=== PATIENT | male | born 1935 | race Caucasian/White ===

== ENCOUNTER 2023-09-04 20:30 | Inpatient (IN) | payer MEDICARE, SELFPAY ==
[2023-09-04 20:35] VITALS: BP 146/75; PULSE 72; RESP 18; TEMP 37; O2SAT 96
[2023-09-04 21:06] VITALS: BMI 38.5
[2023-09-04] MEDS: Polyethylene Glycol 3350 17 GM PACKET PO (23:16)
[2023-09-04] MEDS: Acetaminophen 325 MG Tablet 650 MG PO (23:16)
--- NOTE | 2023-09-05 03:29 | NURSING ---
Bladder scan completed per POLICY CANCELLATION CLERK as pt has not voided since admit. Result 389 ml. This nurse performed st cath per order using sterile technique. Immediate return of 500 ml clear, straw to mando colored urine w/ a strong odor. Pt shows no sxs of pain or discomfort andf tolerated st cath well. Alert to self only. Will continue to monitor.
[2023-09-05 05:21] LABS: Absolute Lymphocyte Count 1.58 X10^3/uL (0.83-4.51); Absolute Neutrophil Count 6.3 X10^3/uL (2.0-7.7); Basophil# 0.04 X10^3/uL; Basophil% 0.4 % (0-1); Eosinophils% 2.2 % (0-5); Hematocrit 35.4 % (40-54); Hemoglobin 11.4 g/dL (13.0-16.5); Lymphocyte # 1.58 X10^3/ul (0.83-4.51); Lymphocyte % 17.6 % (19-41); Mean Corp Hgb Conc 32.2 g/dL (32-36); Mean Corpuscular Volume 102.6 fL (80-94); Mean Platelet Vol. 9.9 fl (6.2-12.0); Monocyte# 0.79 X10^3/uL; Monocyte% 8.8 % (0-10); NRBC Flagged by Analyzer 0 % (0-5); Neutrophil # 6.26 X10^3/uL (2.7-7.7); Neutrophil % 69.9 % (47-70); Platelet Count 215 K/mm3 (150-450); RBC Distribution Width CV 12.5 % (11.6-14.6); RBC Distribution Width SD 46.9 fl (35.1-43.9); Red Blood Count 3.45 M/mm3 (4.6-6.2)
[2023-09-05 06:28] LABS: ALB/GLOB Ratio 0.7 RATIO (0.9-2.4); AST(SGOT) 19 U/L (15-37); Alanine Aminotransfer ALT/SGPT 21 U/L (16-61); Albumin, Serum 2.6 g/dL (3.2-5.0); Alkaline Phosphatase 56 U/L (45-117); Anion Gap 2 (5-15); BUN 16 mg/dL (7-18); BUN/Creat Ratio 22.7 RATIO (10-20); Calcium,Total 9.3 mg/dL (8.5-10.1); Chloride 103 mmol/L (98-107); EST Glomerular Filtration Rate 112 mL/min (>60); Est Glom Filt Rate - Afr Amer 136 mL/min (>60); Estimated Creatinine Clearance 82.54 ml/min; Globulin 3.8 g/dL (2.2-4.2); Glucose 99 mg/dL (74-106); Magnesium 2.1 mg/dL (1.6-2.6); Phosphorus 2.9 mg/dL (2.5-4.9); Potassium 3.9 mmol/L (3.5-5.1); Protein, Total 6.4 g/dL (6.4-8.2); Sodium Level 137 mmol/L (136-145); Thyroid Stim Hormone (TSH) 1.46 uIU/mL (0.358-3.74)
[2023-09-05] MEDS: oxyCODONE 5 MG Tablet PO ×2 (07:15→19:47)
[2023-09-05] MEDS: Enoxaparin 40 MG/0.4 ML Syringe SC (07:15)
[2023-09-05] MEDS: Acetaminophen 325 MG Tablet 650 MG PO ×3 (07:16→18:05)
[2023-09-05] MEDS: Levothyroxine 150 MCG Tablet PO (07:16)
--- NOTE | 2023-09-05 07:49 | NURSING ---
Pt has been very belligerent toward all staff that have been attempting to assist w/ care. Alert to self but does not answer each orientation question asked- will try to change the subject. 1:1 has been unsuccessful w/ each attempt. Was recently repositioned in bed per web services manager x2 assist. Will continue to monitor.
[2023-09-05] MEDS: amLODIPine 5 MG Tablet PO (08:14)
[2023-09-05] MEDS: Tamsulosin HCl 0.4 MG Capsule PO (08:14)
[2023-09-05] MEDS: Pantoprazole Sodium 20 MG Tablet PO (08:14)
[2023-09-05] MEDS: Losartan Potassium 100 MG Tablet PO (08:14)
[2023-09-05] MEDS: hydroCHLOROthiazide 25 MG Tablet PO (08:14)
[2023-09-05] MEDS: Nystatin Powder 15gm Bottle 1 APPLIC TOPICAL ×2 (08:15→19:49)
[2023-09-05] MEDS: Polyethylene Glycol 3350 17 GM PACKET PO ×2 (08:15→19:49)
[2023-09-05] MEDS: Senna Tablet 1 TABLET PO ×2 (08:15→19:49)
[2023-09-05 08:54] VITALS: BP 165/88; PULSE 64; RESP 18; TEMP 37.4; O2SAT 94
--- NOTE | 2023-09-05 11:03 | HP.PCM_ITS ---
[facility] - [facility] General Date of Admission: 09/04/23 Date of Service: 09/05/23 Chief Complaint: Debility due to Fall/SDH/vertebral FX HPI Narrative EUNICE WALTERS, is a 87 YO M with a PMH of normal pressure hydrocephalus status post sophysa valve, dementia, hypertension, hypothyroidism, class III severe obesity, diabetes mellitus type 2, history of malignant melanoma, vitamin D deficiency, gastroesophageal reflux disease without esophagitis, glaucoma, BPH and mixed hyperlipidemia who presented to [facility] on 08/27/2023 as a level 2 trauma transfer after a fall backwards down the front steps of his house. CT of the brain showed a subdural hemorrhage measuring up to 5 mm without associated mass effect. He had a displaced/widened fracture through the anterior inferior endplate of T11 with a small volume of fluid/hemorrhage extending from the disc space into the ventral extra-axial space effacing the ventral thecal sac. He was seen in consultation by neurosurgery and orthopedic surgery. A repeat CT scan of his brain the day following his fall the brain bleed was stable and there was no indication for operative intervention. Orthopedic spine surgery obtained an MRI of the entire spine and had concerned that the fracture at T11 was unstable. He went to surgery on 08/28/2023 for a T9-L2 posterior spinal fusion with Dr. Rg De La Fuente. Post operatively he was seen by PT/OT/geriatrics and acute rehab was recommended at [place]. He was transferred to the acute inpt rehab unit at [facility] on 09/04/23 for 3 hours of therapy daily to restore function/independence at or near his level prior to the fall. Spinal precautions include no bending over at the waist, No lifting > 15 lbs, no prolonged bedrest > 8 hours in a 24 hour period. Called COG LO score at previous hospital - 03/30. Prior to the fall he was ambulating independently with a wheeled walker. He has a history of frequent falls. He does not drive......He told the PT today he drives a golf cart. Afebrile-temp today is 99.3. Blood pressure has ranged from 146/75 to 165/88 since admission. Pulse is within normal limits. VSS - Maintaining appropriate oxygen saturation on RA -94% on room air today. Nursing had him on 2 LPM NC last night......no documented hx of TIMBO although he has a thick neck and is morbidly obese Oral intake - FOOD REFUSED BREAKFAST TODAY. FLUIDS poor Discussed with nursing - Was restless last night and confused. He is retaining urine. PVR was 389. He was [facility] for 500. Reviewed the THERAPY notes Medication list reviewed. All lab drawn this morning was personally reviewed. The white blood cell count is normal at 9.0. Hemoglobin is 11.4 with an MCV of 102.6. Platelets are within normal limits. Sodium is normal at 137 and the potassium is 3.9. Serum bicarb is high normal at 32. The BUN is 16 with a creatinine of 0.7. Magnesium and phosphorus are normal. LFTs are unremarkable. TSH is normal at 1.46. Very agitated today. Calling the nurses liars and being very belligerent. Not participating in therapy. Yelling out constantly...he has not struck out at anybody yet but, he is very angry. 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, in remission BPH (benign prostatic hyperplasia) Diabetes mellitus, type 2 Obesity (BMI 30-39.9) Former smoker GERD (gastroesophageal reflux disease) Vitamin D deficiency Essential hypertension History of malignant melanoma Acquired hypothyroidism Hyperlipidemia Glaucoma Normal pressure hydrocephalus Dementia Home Medications ?Medication ?Instructions ?Recorded ?Last Taken ?Type acetaminophen 325 mg tablet 325 mg PO Q6H pain 09/04/23 Unknown History (Tylenol) amlodipine 5 mg tablet 5 mg PO DAILY htn 09/04/23 Unknown History ammonium lactate 12 % lotion topical PRN PRN dry skin 09/04/23 Unknown History atorvastatin 10 mg tablet 10 mg PO DAILY cholesterol 09/04/23 Unknown History hydrochlorothiazide 25 mg tablet 25 mg PO DAILY . 09/04/23 Unknown History latanoprost 0.005 % eye drops 1 drp ophthalmic (eye) QHS eye drop 09/04/23 Unknown History levothyroxine 150 mcg tablet 150 mcg PO DAILY . 09/04/23 Unknown History losartan 100 mg tablet 100 mg PO DAILY . 09/04/23 Unknown History melatonin 3 mg capsule 3 mg PO QHS insomnia 09/04/23 Unknown History omeprazole 10 mg capsule,delayed 10 mg PO DAILY . 09/04/23 Unknown History release oxycodone 5 mg tablet 5 mg PO Q8H PRN pain (scale score 09/04/23 Unknown History 7-10) polyethylene glycol 3350 17 17 g PO BID constipatio 09/04/23 Unknown History gram/dose oral powder (Miralax) sennosides 8.6 mg tablet (senna) 8.6 mg PO BID constipation 09/04/23 Unknown History tamsulosin 0.4 mg capsule 0.4 mg PO DAILY retention 09/04/23 Unknown History Allergy/AdvReac Type Severity Reaction Status Date / Time No Known Allergies Allergy Verified 09/04/23 21:52 Family History Father CAD (coronary artery disease) Mother CAD (coronary artery disease) Diabetes Brother CAD (coronary artery disease) Grandfather CVA (cerebral vascular accident) Both his maternal and paternal grandfathers had strokes. Surgical History History of spinal fusion H/O melanoma excision History of umbilical hernia repair Ventriculo-peritoneal shunt status History of colonoscopy History of appendectomy Social History household members: spouse housing: other details: He lives in a one-story house with 2 steps to enter his home. Smoking Status: Current some day smoker tobacco type: cigars ROS Review of Systems ROS Unobtainable: due to encephalopathy, due to mental condition and due to mental status Vital Signs Vital Signs Vital Signs: 09/04/23 20:35 09/04/23 21:30 09/05/23 08:54 Temperature 98.6 F 99.3 F H Temperature Source Oral Temporal Pulse Rate 72 64 Respiratory Rate 18 18 Respiratory Effort Normal Non-Labored Respiratory Depth Normal Respiratory Pattern Normal Blood Pressure 146/75 H 165/88 H Blood Pressure Mean 98 113 Blood Pressure Source Monitor Monitor Blood Pressure Position Semi-Fowlers Semi-Fowlers Blood Pressure Location Left Arm Right Arm Pulse Ox 96 94 Oxygen Delivery Method Nasal Cannula Nasal Cannula Room Air Oxygen Flow Rate (L/min) 2 2 Weight Weight: 260 lb 9.382 oz Body Mass Index (BMI) 38.5 Physical Exam Narrative Exam was difficult due to the pt being uncooperative. Const Constitutional Narrative: hard of hearing. Poor short term memory. HEENT HEENT Narrative: Mucous membranes are dry Eyes EOMs intact bilaterally, conjunctivae normal and no scleral icterus General Eye: normal appearance of both eyes Neck No nuchal rigidity Chest Chest: symmetrical chest wall rise Resp normal respiratory effort and clear to auscultation bilaterally Resp Narrative: diminished throughout Effort and Inspection: able to speak in complete sentences; Negative for tachypneic or respiratory distress Cardio regular rate, regular rhythm and no gallops Cardio Narrative: Occasional early beat GI GI Narrative: Mildly distended and tympanic. No guarding with palpation. Bowel sounds present in all quadrants. Extremity no pedal edema Extremity Narrative: Very dry skin over the feet and the distal LE's Skin no jaundice Rashes: no rashes Wound Narrative: The incision was examined while he was sitting upright in a chair. The incision is intact with no dehiscence. It has been closed with han which are all intact. There is no drew-incisional erythema and there is no discharge from the incision. At the proximal end of the incision there is a well circumscribed mass which is non-tender to palpation. There is no bruising. The mass is flesh toned and there is no increased warmth to touch. I read in the documentation from the last hospital that he has had a number of fibrous massess excised in the past. Hair: male pattern alopecia Neuro Neuro Narrative: oriented to person only. Moving all extremities spontaneously. Exam is very limited due to agitation and uncooperativeness. Psych Psych Narrative: Very agitated and verbally abusive. Has not attempted to strike any of the staff yet. disoriented and confused. Uncooperative. Appearance: unkempt Attitude: belligerent, agitated and aggressive Results Lab / Micro Data 09/05/23 05:13 09/05/23 05:13 Labs: Laboratory Results - last 24 hr 09/05/23 05:13: WBC 9.0, RBC 3.45 L, Hgb 11.4 L, Hct 35.4 L, MCV 102.6 H, MCH 33.0 H, MCHC 32.2, RDW Std Deviation 46.9 H, RDW Coeff of Julio 12.5, Plt Count 215, MPV 9.9, Immature Gran % (Auto) 1.100 H, Neut % (Auto) 69.9, Lymph % (Auto) 17.6 L, [place] % (Auto) 8.8, Eos % (Auto) 2.2, Baso % (Auto) 0.4, Absolute Neuts (auto) 6.3, Absolute Lymphs (auto) 1.58, Nucleated RBC % 0, Sodium 137, Potassium 3.9, Chloride 103, Carbon Dioxide 32.0, Anion Gap 2 L, BUN 16, Creatinine 0.70, Estim Creat Clear Calc 82.54, Est GFR (MDRD) Af Amer 136, Est GFR (MDRD) Non-Af 112, BUN/Creatinine Ratio 22.7 H, Glucose 99, Calcium 9.3, Phosphorus 2.9, Magnesium 2.1, Total Bilirubin 0.90, AST 19, ALT 21, Alkaline Phosphatase 56, Total Protein 6.4, Albumin 2.6 L, Globulin 3.8, Albumin/Globulin Ratio 0.7 L, TSH 1.46 Assessment & Plan Assessment/Plan (1) Debility: (2) Fall: QUALIFIERS: Encounter type: subsequent encounter Qualified Code(s): W19.XXXD - Unspecified fall, subsequent encounter (3) Subdural hematoma: (4) TBI (traumatic brain injury): QUALIFIERS: Encounter type: subsequent encounter Loss of consciousness presence/duration: without LOC Qualified Code(s): S06.9X0D - Unspecified intracranial injury without loss of consciousness, subsequent encounter (5) T11 vertebral fracture: QUALIFIERS: Encounter type: subsequent encounter Fracture type: c losed Fracture morphology: unspecified fracture morphology (6) History of spinal fusion: (7) Urine retention: (8) Normal pressure hydrocephalus: (9) Dementia: QUALIFIERS: Dementia type: associated with other underlying disease Dementia severity: severe Dementia behavioral or psychological symptom: without behavioral, psychotic, or mood disturbance or anxiety Q ualified Code(s): F02.C0 - Dementia in other diseases classified elsewhere, severe, without behavioral disturbance, psychotic disturbance, mood disturbance, and anxiety (10) Ventriculo-peritoneal shunt status: (11) Delirium: (12) Diabetes mellitus, type 2: QUALIFIERS: Diabetes mellitus terminal manager insulin use: without terminal manager use Diabetes mellitus complication status: without complication Qualified Code(s): E11.9 - Type 2 diabetes mellitus without complications (13) BPH (benign prostatic hyperplasia): QUALIFIERS: Lower urinary tract symptom presence: symptoms present Lower urinary tract symptom detail: urinary retention Qualified Code(s): N40.1 - Benign prostatic hyperplasia with lower urinary tract symptoms; R33.8 - Other retention of urine (14) Presbycusis: QUALIFIERS: Laterality: unspecified laterality Qualified Code(s): H91.10 - Presbycusis, unspecified ear (15) DISH (diffuse idiopathic skeletal hyperostosis): (16) Obesity (BMI 30-39.9): (17) Macrocytic anemia: PLAN: Plan PLAN PT for gait stability OT for ADL's ST for evaluation Analgesics as needed Bowel protocol Fall precautions Assess for Anxiety/Depression GI prophylaxis -pantoprazole DVT prophylaxis with Lovenox 40 mg subcu daily and KELLY hose Follow up with neurosurgery, orthopedic spine surgery, PCP following DC from [facility] Re[facility] AM lab including CMP, CBC, Mag and Phos - ordered and reviewed. EKG today Discontinue melatonin 6 mg at bedtime -if no QT prolongation on the EKG will likely start Seroquel at at bedtime for behavioral disorder. this patient is going to be very challenging on rehab. He is uncooperative and would not do therapy today. We are going to evaluate for infection. will need to control behaviors before we can do any effective therapy. He needs some sedation to keep him from hurting himself and the staff until we can r/o infection as exacerbating his behavioral abnormalities. If he is still not doing 3 hours of therapy by Saturday09/09/23 will need to transition him to another level of care.....doubt hina would take him due to the recent surgery. D/W SW to make her aware of the situation. Charges/Coding Visit Charges Inpatient E&M: 67969 Init Hosp L3
--- NOTE | 2023-09-05 12:06 | EKG12_ITS ---
Test Reason : SOB Blood Pressure : / mmHG Vent. Rate : 064 BPM Atrial Rate : 064 BPM P-R Int : 164 ms QRS Dur : 082 ms QT Int : 404 ms P-R-T Axes : 049 003 015 degrees QTc Int : 416 ms Normal sinus rhythm with sinus arrhythmia Normal ECG No previous ECGs available Confirmed by GUIDO SMITH, BIBIANA ([id number]), editorial clerk JESS DC ([id number]) on 09/09/2023 8:26:43 AM Referred By: BIB Confirmed By:BIBIANA LORA MD
[2023-09-05] MEDS: Haloperidol Lactate 5 MG/ML Vial 3 MG IM (14:35)
--- NOTE | 2023-09-05 14:37 | NURSING ---
Wasted 2mg of Haldol with Iraida ELMORE at this time.
--- NOTE | 2023-09-05 17:11 | CASEMGMT ---
Social Work- Admit Note SW received notification that patient will potentially need placement. Dr. De Leon spoke with patient's , Roxanna to create behavioral treatment plan. Patient will be started on Seroquel and observed for behavioral concerns. In addition, Physician will rule out any infections such as UTI. NOEL spoke with patient's , Roxanna prior to transfer patient was at [facility]. Patient was having behavioral issues related to cognition and functional decline. Roxanna informed NOEL that the patient has formally been diagnosed with dementia. Per , the patient has a shunt placed about 5 years ago for hydrocephalus. NOEL met with patient and , Roxanna at bedside to complete initial intake assessment. NOEL introduced self and role in hospital. Patient is A&Ox1(Self). Patient's , Roxanna provided support redirecting patient to answer questions. Patient was able to confirm name and . Patient is not oriented to time or place. Patient was able to provide brief understanding of presenting circumstances stating I was told I fell at home. Roxanna provided support answering questions regarding demographics and contact information. Roxanna reports that prior to hospitalization the patient was independent to ambulate with access to DME such as walker, cane, grab bars, shower chair. Roxanna informed SW that the patient was in the [employer] in the 60s; no VA benefits at this time. Patient stated on multiple occasions during assessment that he is being kept against his will and that his is lying to him about his whereabouts. Patient was unable to provide social history. Roxanna confirmed the patient's code status as [id number]. Roxanna informed SW that the patient has a Advanced Directive and Living Will, but the Living Will is not notarized or obtain witness signature. Roxanna provided a copy of Advanced Directive to staff. Patient's would like patient to return home when functionally capable. Roxanna encouraged patient to comply with rehabilitation and engage with therapy. Patient's will be present to assist with rehabilitation. Patient does not want to be alone. SW assessed patient cognition BIM 11/13; patient was able to state the year and month. Patient was unable to remember words stated at beginning of assessment. Patient was unable to comprehend full PhQ 9 assessment. Patient stated I don't know to questions regarding thoughts about self and perception from others such as his . Speech therapy is consulted to evaluate patient. NOEL will continue to monitor to provide support for discharge planning. ALONA Corona
[2023-09-05 19:42] VITALS: BP 153/70; PULSE 71; RESP 16; TEMP 36.7; O2SAT 93
[2023-09-05] MEDS: QUEtiapine 25 MG Tablet 37.5 MG PO (19:47)
[2023-09-05] MEDS: Atorvastatin Calcium 10 MG Tablet PO (19:48)
[2023-09-05] MEDS: Latanoprost 0.005% 1 Bottle 1 DRP OPHTHALMIC (19:49)
[2023-09-06] MEDS: Acetaminophen 325 MG Tablet 650 MG PO ×4 (01:14→17:23)
[2023-09-06 01:16] LABS: Mucous, Urine 0 SEEN /hpf (<or=2+); Red Blood Cells-Urine 0 SEEN /hpf (0-5)
[2023-09-06 01:17] LABS: Color, Urine Yellow (Yellow); Glucose, Dipstick Normal (Normal); Ketone-Dipstick Negative (Negative); Leukocyte Esterase-Dipstick 500 /ul (Negative); Nitrite-Dipstick Positive (Negative); Occult Blood-Urine 10 /ul (Negative); Protein-Dipstick Negative (Negative); Urine Bilirubin Dipstick Negative (Negative); Urine Clarity Clear (Clear); Urine Urobilinogen 1 mg/dl (Normal)
[2023-09-06 02:27] LABS: Bacteria 4+ /hpf (None Seen); Squamous Epithelial Cells - UA 0-5 SEEN /hpf (0-5); White Blood Cells 10-25 SEEN /hpf (0-5)
[2023-09-06 06:36] VITALS: BMI 37.3
[2023-09-06] MEDS: Levothyroxine 150 MCG Tablet PO (06:40)
[2023-09-06] MEDS: Enoxaparin 40 MG/0.4 ML Syringe SC (06:40)
[2023-09-06] MEDS: oxyCODONE 5 MG Tablet PO ×2 (07:35→15:16)
[2023-09-06] MEDS: hydroCHLOROthiazide 25 MG Tablet PO (07:51)
[2023-09-06] MEDS: Tamsulosin HCl 0.4 MG Capsule PO (07:51)
[2023-09-06] MEDS: Losartan Potassium 100 MG Tablet PO (07:51)
[2023-09-06] MEDS: Polyethylene Glycol 3350 17 GM PACKET PO ×2 (07:51→20:22)
[2023-09-06] MEDS: Senna Tablet 1 TABLET PO ×2 (07:52→20:23)
[2023-09-06] MEDS: Pantoprazole Sodium 20 MG Tablet PO (07:52)
[2023-09-06] MEDS: amLODIPine 5 MG Tablet PO (07:52)
[2023-09-06] MEDS: Nystatin Powder 15gm Bottle 1 APPLIC TOPICAL ×2 (07:56→20:24)
[2023-09-06 08:40] VITALS: BP 127/47; PULSE 60; RESP 16; TEMP 37.2; O2SAT 91
--- NOTE | 2023-09-06 09:13 | PCM.RU.PYE ---
Admission Information Primary Diagnosis:: Debility due to SDH/TBI/vertebral fx with OR for spinal fusion/dementia with behavioral disturbance. Status Changes from Prescreening?: Medical (this gentleman has severe dementia not mild cognitive impairment. We were mislead by CCAG. He also has significant behavioral issues. ) and Functional Actual Problem List:: Pain, ALteration in Cmfrt, Mobility Impaired, Self Care Deficit and Alteration-Leisure Activ. Potential Problem List:: DVT, Bleeding, Infection, UTI, Aspiration, Falls, Skin Integrity and Depression Risk of Complications DVT: LMWH and KELLY Hose Bleeding: Monitor Lab Values, Nursing to Teach Precautions for anti-coagulation therapy., Wound, if applicable, to be assessed every shift. and Stroke patients assessed for lethargy or change in status. Infection: Clinical Staff to Monitor for S/S of infection: and S/S of infection include fever, redness, warmth, etc. Urinary Tract Infection: Monitor for frequency, burning, discomfort, or incontinence. and Nursing will obtain urine sample for urinalysis and C&S when ordered. Aspiration: Clinical staff will monitor for coughing, drooling, congestion., Speech will evaluate swallowing and dsyphasia. and Nursing will monitor patient swallowing during meals. Falls: Patient will be evaluated for Fall Precautions and Patient will be placed on Fall Precautions as indicated per protocol. Skin Breakdown: Nursing will assess skin daily using assessment tool. and Nursing will place on Skin Breakdown Precautions as indicated. Pain: Clinical staff will assess patient's pain level per protocol., Medications will be given, if needed, and the pain level reassessed. and Other methods: Massage, distraction, decrease stimulus, etc. used PRN. Plan of Care Patient requires physician specializing in physical medicine and rehab oversight to provide close medical supervision of rehab issues including: Pain Management, Sleep Problems, Bowel and Bladder, Medical and co-morbidity Management, DVT prophylaxis, Rehabilitation Leadership and Coordination of treatment team Patient needs Physical Therapy: For a minimum of 1 hour and At least 5 out of 7 days Patient needs Physical Therapy to improve:: Mobility, Strengthening, Transfers, Stretching, ROM, Endurance, Stairs, Gait and Balance Patient needs Occupational Therapy: For a minimum of 1 hour and At least 5 out of 7 days Patient needs Occupational Therapy to improve ADL's incl.: Eating, Grooming, Bathing, Dressing, Toileting, Toilet transfers, Community Reintegration, Higher functioning activities, Household tasks, Adaptive Equipment, Splinting and Other activities as determined Patient requires speech therapy: For a minimum of 1 hour and At least 5 out of 7 days Patient requires speech therapy for: Swallowing, Cognition, Language Skills and Compensatory Strategies Patient requires 24/ Rehabilitation Nursing for: Pain Issues, Identifying and preventing risk factors, Monitoring and reporting current medical conditions, Assisting with ambulation, transfer, and all ADL's, Teaching patients about disease process and medications, Family teaching, Providing safe environment, Bowel and Bladder Issues, Skin integrity and Medication Management Patient needs Scroll Shear Operator/ Case Management for: Discharge Planning, Arranging Home Equipment or Services and Family Interventions Patient needs Dietary and Nutrition Services for: Adequate Nutrition, Nutritional Supplements and Nutritional Education Goals Goals Patient will remain: free from falls Patient will perform eating at: MOD I level of assist. Patient will perform bed mobility at: MOD I level of assist. Patient will complete transfers from bed to chair at: Standby Assist. Patient will ambulate: - (150 feet on various surfaces at standby assist with a wheeled walker) Patient will complete upper body dressing at: - (Minimal assistance) Patient will complete lower body dressing at: - (Min assist with adaptive equipment as needed) Patient will complete toilet transfer at: - (Min assist) Patient will complete toileting at: - (Min assist) Patient will perform bathing at: - (Upper body bathing at supervision and lower body bathing at min assist with adaptive equipment as needed.) Patient will perform Tub/Shower transfer at: - (Minimal assistance using DME as needed) Patient will complete grooming at: - (Min assist while seated at sink) Patient will achieve: - (2 steps with 1-2 handrails at contact-guard assist to allow access to his home entrance) Patient will have pain level of: of 3 or less Patient's skin will: remain intact Patient will receive: adequate nutrition. Discharge Planning Pt Prognosis for Sig. Practical Improv. w/in Reasonable Time: Fair Estimated Length of stay (days): 21 Anticipated D/C Destination: TBD Was Preadmission Assessment Accurate?: No
[2023-09-06] MEDS: Ceftriaxone 1 GM Vial IM (10:07)
--- NOTE | 2023-09-06 11:02 | NURSING ---
Urine back positive for UTI. NO for IM Rocephin for 1 week. and patient aware. Culture pending.
--- NOTE | 2023-09-06 13:35 | PN_ITS ---
Subjective Subjective Afebrile VSS - Maintaining appropriate oxygen saturation on RA Oral intake - FOOD highly variable. He took 75 to 100% of his supper last night and 70 to 100% of his breakfast this morning. He did 50-74 percent with lunch today FLUIDS poor Discussed with nursing - agitated last night but, once he got to sleep he slept pretty well. He was started on Seroquel last night. He has been more cooperative today with his present. Still verbally abusive but, less aggressive when his is present. Sebastian catheter was placed through the night for persistent urinary retention. The UA was resulted this morning and is positive for nitrite with 10-25 WBCs per high-power field. Specific gravity is elevated at 1.03. Urine culture has been ordered. Reviewed the THERAPY notes ST was able to work with him today and he scored only 19/50 on the BCAT.....his told the ST she feels he is pretty much at his baseline. Documentation from [facility] said that he has mild dementia/confusion related to anxiety......... obviously this is not the case. Medication list reviewed. He is much calmer with family in the room and his is willing to come in during the day to help keep him calm. He does not appear to be in any pain and he is not tachypneic nor is he coughing today. He was resting comfortably in bed and napping when I entered the room. He was calm with me and pleasant. ROS is very limited due to dementia and delirium. Objective Data Objective Data Vital Signs: Vital Signs Temp Pulse Resp BP Pulse Ox O2 Del Method O2 Flow Rate 98.9 F 60 16 127/47 H 91 Room Air 2 09/06/23 08:40 09/06/23 08:40 09/06/23 08:40 09/06/23 08:40 09/06/23 08:40 09/06/23 08:40 09/04/23 21:30 Oxygen Flow Rate (L/min) 2 Oxygen Delivery Method Room Air Weight: 251 lb 15.814 oz Body Mass Index (BMI) 37.3 Intake & Output: Intake and Output for Last 24 Hours 09/04/23 09/05/23 09/06/23 23:59 23:59 23:59 Intake Total 640 / 640 480 / 480 Output Total 1200 / 1200 650 / 650 Balance -560 / -560 -170 / -170 Lab / Micro Data 09/05/23 05:13 09/05/23 05:13 Labs: Laboratory Results - last 24 hr 09/06/23 00:40: Urine Color Yellow, Urine Clarity Clear, Urine pH 7.0, Ur Specific Porter 1.030, Urine Protein Negative, Urine Glucose (UA) Normal, Urine Ketones Negative, Urine Occult Blood 10 H, Urine Nitrite Positive H, Urine Bilirubin Negative, Urine Urobilinogen 1 H, Ur Leukocyte Esterase 500 H, Urine RBC 0 SEEN, Urine WBC 10-25 SEEN, Ur Squamous Epith Cells 0-5 SEEN, Urine Bacteria 4+, Urine Mucus 0 SEEN Physical Exam Const alert Constitutional Narrative: Much more cooperative today. Orientation / Consciousness: confused Resp Resp Narrative: Not tachypneic and respirations are not labored. No cough. Cardio regular rate and regular rhythm GI normal to inspection, nondistended, normoactive bowel sounds and soft to palpation GI Narrative: No guarding Extremity General Extremity: Negative for edema Assessment & Plan Assessment/Plan (1) Debility: (2) Fall: QUALIFIERS: Encounter type: subsequent encounter Qualified Code(s): W19.XXXD - Unspecified fall, subsequent encounter (3) Subdural hematoma: (4) TBI (traumatic brain injury): QUALIFIERS: Encounter type: subsequent encounter Loss of consciousness presence/duration: without LOC Qualified Code(s): S06.9X0D - Unspecified intracranial injury without loss of consciousness, subsequent encounter (5) T11 vertebral fracture: QUALIFIERS: Encounter type: subsequent encounter Fracture type: c losed Fracture morphology: unspecified fracture morphology (6) History of spinal fusion: (7) Urine retention: (8) Dementia: QUALIFIERS: Dementia type: associated with other underlying disease Dementia severity: severe Dementia behavioral or psychological symptom: without behavioral, psychotic, or mood disturbance or anxiety Q ualified Code(s): F02.C0 - Dementia in other diseases classified elsewhere, severe, without behavioral disturbance, psychotic disturbance, mood disturbance, and anxiety (9) Ventriculo-peritoneal shunt status: (10) Diabetes mellitus, type 2: QUALIFIERS: Diabetes mellitus jail insulin use: without emt intermediate use Diabetes mellitus complication status: without complication Qualified Code(s): E11.9 - Type 2 diabetes mellitus without complications (11) BPH (benign prostatic hyperplasia): QUALIFIERS: Lower urinary tract symptom presence: symptoms present Lower urinary tract symptom detail: urinary retention Qualified Code(s): N40.1 - Benign prostatic hyperplasia with lower urinary tract symptoms; R33.8 - Other retention of urine (12) Presbycusis: QUALIFIERS: Laterality: unspecified laterality Qualified Code(s): H91.10 - Presbycusis, unspecified ear (13) DISH (diffuse idiopathic skeletal hyperostosis): (14) Obesity (BMI 30-39.9): (15) Macrocytic anemia: (16) Urinary tract infection associated with indwelling urethral catheter: (17) Delirium: PLAN: Plan 1. Attempt to continue therapy. His is agreeable to being here to facilitate Earl's participation with the therapy sessions. He seems to do much better when she is present. Doubt he will be able to do 3 hours a day. He really is not appropriate for this unit and we were mislead by [facility] with regard to his cognitive abilities and behavioral disturbances. May need to add a dose of Seroquel in the AM.....will use PRN Haldol for severe agitation and continue to observe. 2. EKG did not show QT prolongation. 3. Started Rocephin 1 GM IM daily X7 and will await the results of the urine culture to make any changes to the antibiotic. 4. His will encourage him to increase his fluid intake. 5. He is eating fairly well since admission. Charges/Coding Visit Charges Inpatient E&M: 98029 [facility] Hosp L1
[2023-09-06 20:00] VITALS: BP 104/58; PULSE 73; RESP 15; TEMP 37.8; O2SAT 91
[2023-09-06] MEDS: Atorvastatin Calcium 10 MG Tablet PO (20:22)
[2023-09-06] MEDS: QUEtiapine 25 MG Tablet 37.5 MG PO (20:23)
[2023-09-06] MEDS: Latanoprost 0.005% 1 Bottle 1 DRP OPHTHALMIC (20:23)
[2023-09-07] MEDS: oxyCODONE 5 MG Tablet PO ×2 (03:53→20:32)
[2023-09-07] MEDS: Enoxaparin 40 MG/0.4 ML Syringe SC (06:28)
[2023-09-07] MEDS: Levothyroxine 150 MCG Tablet PO (06:29)
[2023-09-07] MEDS: Acetaminophen 325 MG Tablet 650 MG PO ×4 (06:29→21:27)
[2023-09-07] MEDS: Pantoprazole Sodium 20 MG Tablet PO (08:36)
[2023-09-07] MEDS: Polyethylene Glycol 3350 17 GM PACKET PO ×2 (08:37→20:36)
[2023-09-07] MEDS: amLODIPine 5 MG Tablet PO (08:37)
[2023-09-07] MEDS: Losartan Potassium 100 MG Tablet PO (08:37)
[2023-09-07] MEDS: Tamsulosin HCl 0.4 MG Capsule PO (08:37)
[2023-09-07] MEDS: Senna Tablet 1 TABLET PO ×2 (08:37→20:37)
[2023-09-07] MEDS: Nystatin Powder 15gm Bottle 1 APPLIC TOPICAL ×2 (08:48→21:38)
[2023-09-07 08:54] VITALS: BP 154/68; PULSE 78; RESP 18; TEMP 37.7; O2SAT 98
[2023-09-07] MEDS: Ceftriaxone 1 GM Vial IM (11:04)
[2023-09-07] MEDS: Magnesium Hydroxide 30 ML UDC PO (13:14)
[2023-09-07 20:16] VITALS: BP 148/72; PULSE 81; RESP 18; TEMP 37.3; O2SAT 96
[2023-09-07] MEDS: QUEtiapine 25 MG Tablet 37.5 MG PO (20:32)
[2023-09-07] MEDS: Atorvastatin Calcium 10 MG Tablet PO (20:36)
[2023-09-07] MEDS: Latanoprost 0.005% 1 Bottle 1 DRP OPHTHALMIC (20:37)
[2023-09-08] MEDS: Acetaminophen 325 MG Tablet 650 MG PO ×4 (05:49→21:36)
[2023-09-08] MEDS: Enoxaparin 40 MG/0.4 ML Syringe SC (05:49)
[2023-09-08] MEDS: Levothyroxine 150 MCG Tablet PO (05:49)
[2023-09-08] MEDS: oxyCODONE 5 MG Tablet PO (07:52)
[2023-09-08] MEDS: Pantoprazole Sodium 20 MG Tablet PO (07:53)
[2023-09-08] MEDS: Losartan Potassium 100 MG Tablet PO (07:53)
[2023-09-08] MEDS: Polyethylene Glycol 3350 17 GM PACKET PO ×2 (07:53→21:37)
[2023-09-08] MEDS: amLODIPine 5 MG Tablet PO (07:53)
[2023-09-08] MEDS: Tamsulosin HCl 0.4 MG Capsule PO (07:53)
[2023-09-08] MEDS: Senna Tablet 1 TABLET PO ×2 (07:53→21:37)
[2023-09-08] MEDS: Nystatin Powder 15gm Bottle 1 APPLIC TOPICAL ×2 (07:54→21:37)
[2023-09-08 08:17] VITALS: BP 117/55; PULSE 66; RESP 16; TEMP 37.3; O2SAT 94
[2023-09-08] MEDS: Ceftriaxone 1 GM Vial IM (10:42)
[2023-09-08] MEDS: Bisacodyl 10 MG Suppository RC (13:57)
[2023-09-08 19:45] VITALS: BP 146/56; PULSE 74; RESP 16; TEMP 37.1; O2SAT 89
[2023-09-08 20:00] VITALS: O2SAT 93
[2023-09-08 20:50] VITALS: O2SAT 93
[2023-09-08] MEDS: Atorvastatin Calcium 10 MG Tablet PO (21:35)
[2023-09-08] MEDS: QUEtiapine 25 MG Tablet 37.5 MG PO (21:36)
[2023-09-08] MEDS: Latanoprost 0.005% 1 Bottle 1 DRP OPHTHALMIC (21:36)
[2023-09-09 06:13] VITALS: O2SAT 94
[2023-09-09] MEDS: Acetaminophen 325 MG Tablet 650 MG PO ×4 (06:21→21:29)
[2023-09-09] MEDS: Levothyroxine 150 MCG Tablet PO (06:22)
[2023-09-09] MEDS: Enoxaparin 40 MG/0.4 ML Syringe SC (06:22)
[2023-09-09] MEDS: Losartan Potassium 100 MG Tablet PO (09:18)
[2023-09-09] MEDS: Tamsulosin HCl 0.4 MG Capsule PO (09:18)
[2023-09-09] MEDS: Ceftriaxone 1 GM Vial IM (09:19)
[2023-09-09] MEDS: QUEtiapine 25 MG Tablet PO (09:19)
[2023-09-09] MEDS: Pantoprazole Sodium 20 MG Tablet PO (09:19)
[2023-09-09] MEDS: Nystatin Powder 15gm Bottle 1 APPLIC TOPICAL ×2 (09:20→21:31)
[2023-09-09] MEDS: amLODIPine 5 MG Tablet PO (09:58)
[2023-09-09 10:00] VITALS: BP 155/56; PULSE 72; RESP 19; TEMP 37.2; O2SAT 95
--- NOTE | 2023-09-09 10:22 | PCM.PROGNOTE ---
Subjective Subjective Earl was seen on team rounds today. His Roxanna was present for rounds outside his room. Rocephin #4 - DC'd today Augmentin #04/10 Afebrile - having low grade fevers. Urine culture grew e.Coli ESBL and it is resistant to Rocephin. He had a catheter at the previous hospital and the UTI is likely catheter related. Also resistant to Levaquin and Cipro. It is sensitive to Augmentin, Bactrim and Tetracycline. VSS - Maintaining appropriate oxygen saturation on RA Oral intake - FOOD variable....sometimes refusing meals FLUIDS poor to fair Incontinent of stool. Sebastian in place for urine retention. Discussed with nursing - Continues to be argumentative and mean with nursing staff and at times he is aggressive. Having his present in the room helps a lot with the anger/aggression. Reviewed the THERAPY notes Medication list reviewed. He is getting Oxycodone 1-2 times a day for pain. Still inappropriate with staff. Angry with outbursts. Had to add Seroquel in the AM yesterday for agitation/threatening behavior. Has not needed Haldol since the first day in rehab. He is requiring total assist with ADL's and he is a big man. Roxanna would not be able to manage him at home by herself. She does not want to put him in a custodial. She would like to be able to take him home at NH from rehab. Her son can take up to 40 days of FMLA and I offered to complete his paperwork if he brings it in. Her dtr-in-law is retired and she will be available to help at home. Will check with them to see if they would be willing to come in at some point for shared care to see if they would be able to provide adequate assist if Joshua would be discharged home. If we need to DC to a facility it will be difficult due to severe dementia with acute TBI and behavioral issues. We have already started talking about options if he were to go to a facility. I suspect he will continue to deteriorate if he has to go to a facility and will need continued sedation to control behavior. Sedation will impair his ability to do therapy. I am hopeful that treating then UTI with appropriate antibiotics will help with agitation/delirium. Objective Data Objective Data Vital Signs: Vital Signs Temp Pulse Resp BP Pulse Ox O2 Del Method O2 Flow Rate 98.8 F 74 16 146/56 H 94 Nasal Cannula 2 09/08/23 19:45 09/08/23 19:45 09/08/23 19:45 09/08/23 19:45 09/09/23 06:13 09/09/23 06:13 09/09/23 07:59 Oxygen Flow Rate (L/min) 2 Oxygen Delivery Method Nasal Cannula Weight: 251 lb 15.814 oz Body Mass Index (BMI) 37.3 Intake & Output: Intake and Output for Last 24 Hours 09/07/23 09/08/23 09/09/23 23:59 23:59 23:59 Intake Total 1400 / 1400 1000 / 1000 240 / 240 Output Total 1800 / 1800 750 / 1200 800 / 800 Balance -400 / -400 250 / -200 -560 / -560 Lab / Micro Data 09/05/23 05:13 09/05/23 05:13 Micro: Microbiology 09/06/23 00:40 Urine Catheter - Sebastian Urine Culture - Final ESBL Escherichia coli Physical Exam Const Constitutional Narrative: Intermittently drowsy and awake. Caustic when awake but, his is able to calm him down. He periodically yells out as though in pain........had not received any pain medication since yesterday. He is hallucinating and seeing things that are not there. Appears pale. Resp normal respiratory effort Effort and Inspection: Negative for tachypneic Cardio regular rate and regular rhythm GI normal to inspection, nondistended, normoactive bowel sounds and soft to palpation GI Narrative: Urine in the Sebastian bag is pale and clear. Extremity no calf tenderness General Extremity: Negative for edema Skin Rashes: no rashes Wound Narrative: The back incision is intact with no dehiscence. There is no discharge on the bandage and no discharge from the wound. No drew-incisional erythema. The hematoma at the proximal end of the incision has resolved with warm compresses. Neuro Neuro Narrative: Moving all extremities Psych Psych Narrative: Inappropriate, aggressive at times. Nasty with the nursing staff when they are trying to help him. Verbally abusive Attitude: agitated Activity / Motor Behavior: restless Assessment & Plan Assessment/Plan (1) Debility: (2) Fall: QUALIFIERS: Encounter type: subsequent encounter Qualified Code(s): W19.XXXD - Unspecified fall, subsequent encounter (3) Subdural hematoma: (4) TBI (traumatic brain injury): QUALIFIERS: Encounter type: subsequent encounter Loss of consciousness presence/duration: without LOC Qualified Code(s): S06.9X0D - Unspecified intracranial injury without loss of consciousness, subsequent encounter (5) T11 vertebral fracture: QUALIFIERS: Encounter type: subsequent encounter Fracture morphology: unspecified fracture morphology Fracture type: closed (6) History of spinal fusion: (7) Urine retention: (8) Dementia: QUALIFIERS: Dementia behavioral or psychological symptom: without behavioral, psychotic, or mood disturbance or anxiety Dementia severity: severe Dementia type: associated with other underlying disease Qualified Code(s): F02.C0 - Dementia in other diseases classified elsewhere, severe, without behavioral disturbance, psychotic disturbance, mood disturbance, and anxiety (9) Ventriculo-peritoneal shunt status: (10) Diabetes mellitus, type 2: QUALIFIERS: Diabetes mellitus complication status: without complication Diabetes mellitus buttermilk drier operator insulin use: without residential use Qualified Code(s): E11.9 - Type 2 diabetes mellitus without complications (11) BPH (benign prostatic hyperplasia): QUALIFIERS: Lower urinary tract symptom detail: urinary retention Lower urinary tract symptom presence: symptoms present Qualified Code(s): N40.1 - Benign prostatic hyperplasia with lower urinary tract symptoms; R33.8 - Other retention of urine (12) Presbycusis: QUALIFIERS: Laterality: unspecified laterality Qualified Code(s): H91.10 - Presbycusis, unspecified ear (13) DISH (diffuse idiopathic skeletal hyperostosis): (14) Obesity (BMI 30-39.9): (15) Macrocytic anemia: (16) Delirium: (17) UTI due to extended-spectrum beta lactamase (ESBL) producing Escherichia coli: PLAN: Plan 1. Continue therapy 2. Continue Seroquel. I am hoping with tx of the UTI the behavior will improve and we can taper the sedation. 3. Discontinue Rocephin. Start ampicillin/sulbactam 400 mg p.o. TID CM SX 10 days. 4. Encourage increased fluids. 5. Add Proscar to the current drug regimen. Voiding trial after 4-5 days. 6. Family to come in for shared care/family training to see if they could possibly manage at home with [facility]. I think if he goes to another facility he will continue to decline but, if we can get him back to an environment he recognizes with people he recognizes he may just do better. 7. Discontinue oxycodone and try tramadol for pain control - Start with 25 mg TID Charges/Coding Visit Charges Inpatient E&M: 77534 Subs Hosp L2
[2023-09-09] MEDS: Finasteride 5 MG Tablet PO (12:05)
[2023-09-09] MEDS: Amox/Clav 400mg/5ml Susp 400 MG PO ×2 (12:05→17:28)
--- NOTE | 2023-09-09 13:13 | CASEMGMT ---
Social Work- Teams Meeting IDT met with , Roxanna in break room to discuss care. Discussed patient progress with therapy (PT/OT/ST) and nursing. Patient requires total; max physical assistance with ADLS; IADLS. Patient will require family support to assist with therapy. SW discussed concerns for patient to return home at this time due to functional status. Patient is at baseline with cognition. Patient will require family assistance with continued care. SW discussed intermediate manager care in nursing facility due to concerns with care. Roxanna informed staff that she is concerned about patient discharging to a nursing facility due to cognition. Roxanna informed team that her son and daughter in law will assist in family training to determine, if family can assist with care in home setting. NOEL will continue to follow to assist with discharge planning. ALONA Corona
[2023-09-09] MEDS: traMADol 50 MG Tablet 25 MG PO (21:29)
[2023-09-09] MEDS: Atorvastatin Calcium 10 MG Tablet PO (21:29)
[2023-09-09] MEDS: Latanoprost 0.005% 1 Bottle 1 DRP OPHTHALMIC (21:30)
[2023-09-09] MEDS: QUEtiapine 25 MG Tablet 37.5 MG PO (21:30)
[2023-09-09 22:00] VITALS: BP 138/63; PULSE 72; RESP 16; TEMP 37.2; O2SAT 94
[2023-09-10] MEDS: traMADol 50 MG Tablet 25 MG PO ×3 (06:13→21:41)
[2023-09-10] MEDS: Acetaminophen 325 MG Tablet 650 MG PO ×4 (06:13→21:24)
[2023-09-10] MEDS: Levothyroxine 150 MCG Tablet PO (06:14)
[2023-09-10] MEDS: Enoxaparin 40 MG/0.4 ML Syringe SC (06:14)
[2023-09-10] MEDS: Tamsulosin HCl 0.4 MG Capsule PO (07:50)
[2023-09-10] MEDS: amLODIPine 5 MG Tablet PO ×2 (07:50)
[2023-09-10] MEDS: QUEtiapine 25 MG Tablet PO (07:50)
[2023-09-10] MEDS: Senna Tablet 1 TABLET PO ×2 (07:50→21:24)
[2023-09-10] MEDS: Polyethylene Glycol 3350 17 GM PACKET PO ×2 (07:50→21:24)
[2023-09-10] MEDS: Finasteride 5 MG Tablet PO (07:50)
[2023-09-10] MEDS: Losartan Potassium 100 MG Tablet PO (07:50)
[2023-09-10] MEDS: Pantoprazole Sodium 20 MG Tablet PO (07:50)
[2023-09-10] MEDS: Amox/Clav 400mg/5ml Susp 400 MG PO ×3 (07:51→17:06)
[2023-09-10 07:56] VITALS: BP 155/70; PULSE 69; RESP 18; TEMP 37.1; O2SAT 94
[2023-09-10] MEDS: Nystatin Powder 15gm Bottle 1 APPLIC TOPICAL ×2 (07:57→21:24)
[2023-09-10 20:46] VITALS: BP 150/76; PULSE 68; RESP 18; TEMP 37.1; O2SAT 95
[2023-09-10] MEDS: QUEtiapine 25 MG Tablet 37.5 MG PO (21:24)
[2023-09-10] MEDS: Atorvastatin Calcium 10 MG Tablet PO (21:24)
[2023-09-10] MEDS: Latanoprost 0.005% 1 Bottle 1 DRP OPHTHALMIC (21:25)
[2023-09-11] MEDS: Enoxaparin 40 MG/0.4 ML Syringe SC (05:49)
[2023-09-11] MEDS: Levothyroxine 150 MCG Tablet PO (05:49)
[2023-09-11] MEDS: Acetaminophen 325 MG Tablet 650 MG PO ×4 (05:50→22:49)
[2023-09-11] MEDS: traMADol 50 MG Tablet 25 MG PO ×3 (06:20→20:30)
[2023-09-11 07:47] VITALS: BP 159/82; PULSE 63; RESP 16; TEMP 37.2; O2SAT 96
[2023-09-11] MEDS: Losartan Potassium 100 MG Tablet PO (07:53)
[2023-09-11] MEDS: Tamsulosin HCl 0.4 MG Capsule PO (07:53)
[2023-09-11] MEDS: Amox/Clav 400mg/5ml Susp 400 MG PO ×3 (07:54→17:01)
[2023-09-11] MEDS: Polyethylene Glycol 3350 17 GM PACKET PO ×2 (07:54→20:24)
[2023-09-11 08:15] VITALS: O2SAT 92
[2023-09-11] MEDS: QUEtiapine 25 MG Tablet PO (08:51)
[2023-09-11] MEDS: Pantoprazole Sodium 20 MG Tablet PO (08:51)
[2023-09-11] MEDS: Senna Tablet 1 TABLET PO ×2 (08:51→20:24)
[2023-09-11] MEDS: Finasteride 5 MG Tablet PO (08:52)
[2023-09-11] MEDS: Nystatin Powder 15gm Bottle 1 APPLIC TOPICAL ×2 (11:31→22:51)
--- NOTE | 2023-09-11 14:35 | PN_ITS ---
Subjective Subjective Afebrile VSS - Maintaining appropriate oxygen saturation on RA Oral intake - FOOD better FLUIDS good Discussed with nursing - Mood and cooperation is improving. He seems to be turning a corner. Doing better with therapy and he is more appropriate when he is talking with people. Seroqueal 12.5 mg in the AM is not making him drowsy. He is sleeping well at night and his food intake is better with soft foods. Reviewed the THERAPY notes Medication list reviewed. He denies pain. He does not appear to be in any distress. He is not coughing and he is not tachypneic. Urine in the Sebastian tubing and bag is very pale and clear.....has been doing much better with fluid intake. He is much more compliant since his family has been coming in to work with him when he is doing therapy. Objective Data Objective Data Vital Signs: Vital Signs Temp Pulse Resp BP Pulse Ox O2 Del Method O2 Flow Rate 98.9 F 63 16 159/82 H 92 Room Air 2 09/11/23 07:47 09/11/23 07:47 09/11/23 07:47 09/11/23 07:47 09/11/23 08:15 09/11/23 10:00 09/10/23 22:00 Oxygen Flow Rate (L/min) 2 Oxygen Delivery Method Room Air Weight: 251 lb 15.814 oz Body Mass Index (BMI) 37.3 Intake & Output: Intake and Output for Last 24 Hours 09/09/23 09/10/23 09/11/23 23:59 23:59 23:59 Intake Total 730 / 730 1790 / 1790 600 / 600 Output Total 1550 / 1550 1075 / 1475 1400 / 1400 Balance -820 / -820 715 / 315 -800 / -800 Lab / Micro Data 09/05/23 05:13 09/05/23 05:13 Micro: Microbiology 09/06/23 00:40 Urine Catheter - Sebastian Urine Culture - Final ESBL Escherichia coli Physical Exam Const alert and no apparent distress Orientation / Consciousness: confused HEENT moist oral mucous membranes Resp clear to auscultation bilaterally Cardio regular rate and regular rhythm GI normal to inspection, nondistended, normoactive bowel sounds, soft to palpation and non-tender Extremity General Extremity: Negative for edema Skin Rashes: no rashes Wound Narrative: The incision looks great. There is no dehiscence, no drew-incisional erythema and no discharge. He has no pain with palpation adjacent to the incision. Assessment & Plan Assessment/Plan (1) Debility: (2) Fall: QUALIFIERS: Encounter type: subsequent encounter Qualified Code(s): W19.XXXD - Unspecified fall, subsequent encounter (3) Subdural hematoma: (4) TBI (traumatic brain injury): QUALIFIERS: Encounter type: subsequent encounter Loss of consciousness presence/duration: without LOC Qualified Code(s): S06.9X0D - Unspecified intracranial injury without loss of consciousness, subsequent encounter (5) T11 vertebral fracture: QUALIFIERS: Encounter type: subsequent encounter Fracture type: c losed Fracture morphology: unspecified fracture morphology (6) History of spinal fusion: (7) Urine retention: (8) Dementia: QUALIFIERS: Dementia type: associated with other underlying disease Dementia severity: severe Dementia behavioral or psychological symptom: without behavioral, psychotic, or mood disturbance or anxiety Q ualified Code(s): F02.C0 - Dementia in other diseases classified elsewhere, severe, without behavioral disturbance, psychotic disturbance, mood disturbance, and anxiety (9) Ventriculo-peritoneal shunt status: (10) Diabetes mellitus, type 2: QUALIFIERS: Diabetes mellitus intermediate insulin use: without predatory animal exterminator use Diabetes mellitus complication status: without complication Qualified Code(s): E11.9 - Type 2 diabetes mellitus without complications (11) BPH (benign prostatic hyperplasia): QUALIFIERS: Lower urinary tract symptom presence: symptoms present Lower urinary tract symptom detail: urinary retention Qualified Code(s): N40.1 - Benign prostatic hyperplasia with lower urinary tract symptoms; R33.8 - Other retention of urine (12) Delirium: (13) UTI due to extended-spectrum beta lactamase (ESBL) producing Escherichia coli: PLAN: Plan Continue therapy Continue Augmentin for a full 10 days for a multidrug-resistant E. coli that most likely occurred due to Sebastian catheter at the previous institution. After another few days on Proscar we will do a voiding trial. Charges/Coding Visit Charges Inpatient E&M: [address] [facility] Hosp L1
[2023-09-11] MEDS: Atorvastatin Calcium 10 MG Tablet PO (20:24)
[2023-09-11] MEDS: Latanoprost 0.005% 1 Bottle 1 DRP OPHTHALMIC (20:24)
[2023-09-11] MEDS: QUEtiapine 25 MG Tablet 37.5 MG PO (20:25)
[2023-09-11 20:35] VITALS: BP 144/62; PULSE 67; RESP 15; TEMP 37.2; O2SAT 93
--- NOTE | 2023-09-12 02:48 | NURSING ---
Reviewed and agree with Maria E MAC, documentation and assessment charting.
[2023-09-12] MEDS: Acetaminophen 325 MG Tablet 650 MG PO ×4 (06:32→23:03)
[2023-09-12] MEDS: Enoxaparin 40 MG/0.4 ML Syringe SC (06:32)
[2023-09-12] MEDS: Levothyroxine 150 MCG Tablet PO (06:32)
[2023-09-12] MEDS: traMADol 50 MG Tablet 25 MG PO ×3 (06:33→20:08)
[2023-09-12] MEDS: amLODIPine 5 MG Tablet PO (07:23)
[2023-09-12] MEDS: Amox/Clav 400mg/5ml Susp 400 MG PO ×3 (07:23→17:13)
[2023-09-12] MEDS: Losartan Potassium 100 MG Tablet PO (07:24)
[2023-09-12] MEDS: Tamsulosin HCl 0.4 MG Capsule PO (07:24)
[2023-09-12 07:46] VITALS: BP 180/79; PULSE 61; RESP 18; TEMP 36.6; O2SAT 93
[2023-09-12] MEDS: QUEtiapine 25 MG Tablet PO (09:06)
[2023-09-12] MEDS: Pantoprazole Sodium 20 MG Tablet PO (09:06)
[2023-09-12] MEDS: Finasteride 5 MG Tablet PO (09:06)
[2023-09-12] MEDS: Senna Tablet 1 TABLET PO ×2 (09:07→20:07)
[2023-09-12] MEDS: Nystatin Powder 15gm Bottle 1 APPLIC TOPICAL ×2 (12:06→20:43)
--- NOTE | 2023-09-12 17:05 | PN_ITS ---
Subjective Subjective Afebrile VSS -blood pressure is not adequately controlled and is ranging from 142/62 to 180/79 over the past 24 hours. Heart rate is in the 60s. Maintaining appropriate oxygen saturation on RA Oral intake - FOOD good FLUIDS fair Discussed with nursing - no problems that need addressed. He is sleeping better at night. Reviewed the THERAPY notes Medication list reviewed. Urine in the Sebastian bag is clear and pale yellow. Joshua denies pain today. He is much more pleasant and appropriate today. HE realizes when he says something insulting to the staff and has been apologizing. He is much more talkative with staff and interacting well today. He denies shortness of breath, chest pain, lightheadedness and abdominal pain. Objective Data Objective Data Vital Signs: Vital Signs Temp Pulse Resp BP Pulse Ox O2 Del Method O2 Flow Rate 98 F 61 18 180/79 H 93 Room Air 2 09/12/23 07:46 09/12/23 07:46 09/12/23 07:46 09/12/23 07:46 09/12/23 07:46 09/12/23 07:46 09/10/23 22:00 Oxygen Flow Rate (L/min) 2 Oxygen Delivery Method Room Air Weight: 251 lb 15.814 oz Body Mass Index (BMI) 37.3 Intake & Output: Intake and Output for Last 24 Hours 09/10/23 09/11/23 09/12/23 23:59 23:59 23:59 Intake Total 1790 / 1790 1070 / 1070 600 / 600 Output Total 1075 / 1475 2250 / 2250 800 / 800 Balance 715 / 315 -1180 / -1180 -200 / -200 Lab / Micro Data 09/05/23 05:13 09/05/23 05:13 Micro: Microbiology 09/06/23 00:40 Urine Catheter - Sebastian Urine Culture - Final ESBL Escherichia coli Physical Exam Const alert and no apparent distress Orientation / Consciousness: confused HEENT HEENT Narrative: No evidence of thrush. Denies mouth pain. Mouth: dry mucous membranes Resp clear to auscultation bilaterally Resp Narrative: Initially had a few coarse crackles in the bases but these mostly cleared after a few deep breaths. Cardio regular rate, regular rhythm and no gallops Cardio Narrative: No ectopy GI normal to inspection, nondistended, normoactive bowel sounds and soft to palpation Extremity no calf tenderness General Extremity: Negative for edema Skin Rashes: no rashes Assessment & Plan Assessment/Plan (1) Debility: (2) Fall: QUALIFIERS: Encounter type: subsequent encounter Qualified Code(s): W19.XXXD - Unspecified fall, subsequent encounter (3) Subdural hematoma: (4) TBI (traumatic brain injury): QUALIFIERS: Encounter type: subsequent encounter Loss of consciousness presence/duration: without LOC Qualified Code(s): S06.9X0D - Unspecified intracranial injury without loss of consciousness, subsequent encounter (5) T11 vertebral fracture: QUALIFIERS: Encounter type: subsequent encounter Fracture type: c losed Fracture morphology: unspecified fracture morphology (6) History of spinal fusion: (7) Urine retention: (8) Dementia: QUALIFIERS: Dementia type: associated with other underlying disease Dementia severity: severe Dementia behavioral or psychological symptom: without behavioral, psychotic, or mood disturbance or anxiety Q ualified Code(s): F02.C0 - Dementia in other diseases classified elsewhere, severe, without behavioral disturbance, psychotic disturbance, mood disturbance, and anxiety (9) Ventriculo-peritoneal shunt status: (10) Diabetes mellitus, type 2: QUALIFIERS: Diabetes mellitus adjunct faculty for medical terminology insulin use: without adjunct faculty for medical terminology use Diabetes mellitus complication status: without complication Qualified Code(s): E11.9 - Type 2 diabetes mellitus without complications (11) BPH (benign prostatic hyperplasia): QUALIFIERS: Lower urinary tract symptom presence: symptoms present Lower urinary tract symptom detail: urinary retention Qualified Code(s): N40.1 - Benign prostatic hyperplasia with lower urinary tract symptoms; R33.8 - Other retention of urine (12) Presbycusis: QUALIFIERS: Laterality: unspecified laterality Qualified Code(s): H91.10 - Presbycusis, unspecified ear (13) DISH (diffuse idiopathic skeletal hyperostosis): (14) Obesity (BMI 30-39.9): (15) Macrocytic anemia: (16) Delirium: (17) UTI due to extended-spectrum beta lactamase (ESBL) producing Escherichia coli: PLAN: Plan 1. Continue therapy- family is participating in therapy and they are feeling like they will be able to manage him at home. After watching him in therapy I tend to agree with this. He is ambulating longer distances at CGA/gait belt. He does not appear to be in any pain. 2. Delirium has resolved with treating the UTI with appropriate antibiotics, changing the pain med to scheduled Tramadol and utilizing Seroquel twice a day. Having his here every day has been very helpful with behavior. 3. Finish 10 full days of Augmentin for treatment of a multidrug-resistant catheter induced UTI 4. Will do a voiding trial in the AM. I am hopeful with the addition of Proscar to the drug regimen that we will not need to send him home with a Sebastian catheter. His tells me he has not had frequent urinary tract infections at home. 5. Apply petrolatum topically to the lower extremities from the toes to the tibial plateau for dry skin. I discussed possible DC mid week next week if he continues to do well with his family and they are in agreement with the plan. They have 2 lift chairs at home and grab bars in the BR/shower. Charges/Coding Visit Charges Inpatient E&M: 65746 Subs Hosp L2
[2023-09-12 19:00] VITALS: BP 140/70; PULSE 70; RESP 17; TEMP 36.7; O2SAT 96
[2023-09-12 20:00] VITALS: PULSE 70; RESP 17; O2SAT 96
[2023-09-12] MEDS: Petrolatum 33% Tube 1 APPLIC TOPICAL (20:07)
[2023-09-12] MEDS: Polyethylene Glycol 3350 17 GM PACKET PO (20:07)
[2023-09-12] MEDS: QUEtiapine 25 MG Tablet 37.5 MG PO (20:07)
[2023-09-12] MEDS: Latanoprost 0.005% 1 Bottle 1 DRP OPHTHALMIC (20:08)
[2023-09-12] MEDS: Atorvastatin Calcium 10 MG Tablet PO (20:09)
[2023-09-13] MEDS: Enoxaparin 40 MG/0.4 ML Syringe SC (05:06)
[2023-09-13] MEDS: Acetaminophen 325 MG Tablet 650 MG PO ×4 (05:07→22:11)
[2023-09-13] MEDS: Levothyroxine 150 MCG Tablet PO (05:07)
[2023-09-13] MEDS: traMADol 50 MG Tablet 25 MG PO ×3 (05:07→20:59)
[2023-09-13 07:00] VITALS: BMI 38.0
[2023-09-13 07:10] VITALS: O2SAT 93
[2023-09-13] MEDS: amLODIPine 5 MG Tablet PO (07:50)
[2023-09-13] MEDS: QUEtiapine 25 MG Tablet PO (07:50)
[2023-09-13] MEDS: Pantoprazole Sodium 20 MG Tablet PO (07:50)
[2023-09-13] MEDS: Losartan Potassium 100 MG Tablet PO (07:50)
[2023-09-13] MEDS: Tamsulosin HCl 0.4 MG Capsule PO (07:50)
[2023-09-13] MEDS: Senna Tablet 1 TABLET PO ×2 (07:50→20:58)
[2023-09-13] MEDS: Nystatin Powder 15gm Bottle 1 APPLIC TOPICAL ×2 (07:51→21:01)
[2023-09-13] MEDS: Finasteride 5 MG Tablet PO (07:51)
[2023-09-13] MEDS: Amox/Clav 400mg/5ml Susp 400 MG PO ×3 (07:53→16:26)
[2023-09-13 08:43] VITALS: BP 133/62; PULSE 79; RESP 16; TEMP 36.6; O2SAT 94
--- NOTE | 2023-09-13 11:21 | NURSING ---
Zelalem for Dr Rothman office requesting when han could be removed. Waiting for return call.
--- NOTE | 2023-09-13 15:28 | WOUNDNOTE ---
wound photo: back
--- NOTE | 2023-09-13 15:30 | WOUNDNOTE ---
wound photo of back incision sent to as requested.
--- NOTE | 2023-09-13 16:00 | RAD_ITS ---
STUDY: X-RAY - THORACIC SPINE REASON FOR EXAM: Male, 87 years old. F/U from Surgery TECHNIQUE: 3 view(s) of the thoracic spine were obtained. COMPARISON: None. FINDINGS: Normal kyphosis of the thoracic spine. There is no substantial scoliosis. Normal alignment. Posterior fusion with bilateral Bhatt rods and bilateral multilevel pedicular screws seen without definite acute surgical complication. Uppermost screws are at T9 and normal screws are at L2. There is diffuse degenerative disease. 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 RAD/Thoracic Spine 3 Views IMPRESSION: Long segment postsurgical fusion of the thoracolumbar spine with no gross acute complication. Electronically Signed: Jonathon Osborne MD at 16:32 EDT ,
--- NOTE | 2023-09-13 16:57 | PCM.PROGNOTE ---
Subjective Subjective Afebrile VSS - Maintaining appropriate oxygen saturation on RA Oral intake - FOOD good FLUIDS good Discussed with nursing - no problems that need addressed Reviewed the THERAPY notes-he is being very cooperative with therapy and is doing much better. Exercise tolerance has increased considerably. He is also cooperating with nursing. Medication list reviewed. Has voided once since the Sebastian was removed and the PVR was 196. Will straight cath as needed through the weekend. Continue the Proscar and the Flomax. Denies lightheadedness. He denies pain, shortness of breath, palpitations, abdominal pain, nausea, suprapubic pain and calf tenderness. Objective Data Objective Data Vital Signs: Vital Signs Temp Pulse Resp BP Pulse Ox O2 Del Method O2 Flow Rate 97.8 F 79 16 133/62 H 94 Room Air 2 09/13/23 08:43 09/13/23 08:43 09/13/23 08:43 09/13/23 08:43 09/13/23 08:43 09/13/23 09:59 09/10/23 22:00 Oxygen Flow Rate (L/min) 2 Oxygen Delivery Method Room Air Weight: 257 lb 2 oz Body Mass Index (BMI) 38.0 Intake & Output: Intake and Output for Last 24 Hours 09/11/23 09/12/23 09/13/23 23:59 23:59 23:59 Intake Total 1070 / 1070 1710 / 1710 1090 / 1090 Output Total 2250 / 2250 1550 / 1550 1600 / 1600 Balance -1180 / -1180 160 / 160 -510 / -510 Lab / Micro Data 09/05/23 05:13 09/05/23 05:13 Micro: Microbiology 09/06/23 00:40 Urine Catheter - Sebastian Urine Culture - Final ESBL Escherichia coli Radiography Diagnostic Testing: Radiology Impression Thoracic Spine X-Ray 09/13/23 16:00 IMPRESSION: Long segment postsurgical fusion of the thoracolumbar spine with no gross acute complication. Electronically Signed: Jonathon Osborne MD at 16:32 EDT , Physical Exam Const alert and no apparent distress General Appearance: cooperative HEENT moist oral mucous membranes Resp clear to auscultation bilaterally Cardio regular rate, regular rhythm and no gallops GI normal to inspection, nondistended, normoactive bowel sounds, soft to palpation and non-tender GI Narrative: No guarding with palpation. Extremity no calf tenderness General Extremity: Negative for edema Skin Skin Narrative: Dry skin Rashes: no rashes Wound Narrative: The incision is intact with no dehiscence. Han remain in place. There is no drew-incisional erythema, no discharge and no swelling around the incision. He denies pain. Assessment & Plan Assessment/Plan (1) Debility: (2) Fall: QUALIFIERS: Encounter type: subsequent encounter Qualified Code(s): W19.XXXD - Unspecified fall, subsequent encounter (3) Subdural hematoma: (4) TBI (traumatic brain injury): QUALIFIERS: Encounter type: subsequent encounter Loss of consciousness presence/duration: without LOC Qualified Code(s): S06.9X0D - Unspecified intracranial injury without loss of consciousness, subsequent encounter (5) T11 vertebral fracture: QUALIFIERS: Encounter type: subsequent encounter Fracture type: closed Fracture morphology: unspecified fracture morphology (6) History of spinal fusion: (7) Urine retention: (8) Dementia: QUALIFIERS: Dementia type: associated with other underlying disease Dementia severity: severe Dementia behavioral or psychological symptom: without behavioral, psychotic, or mood disturbance or anxiety Qualified Code(s): F02.C0 - Dementia in other diseases classified elsewhere, severe, without behavioral disturbance, psychotic disturbance, mood disturbance, and anxiety (9) Ventriculo-peritoneal shunt status: (10) Diabetes mellitus, type 2: QUALIFIERS: Diabetes mellitus correction insulin use: without manager terminal use Diabetes mellitus complication status: without complication Qualified Code(s): E11.9 - Type 2 diabetes mellitus without complications (11) BPH (benign prostatic hyperplasia): QUALIFIERS: Lower urinary tract symptom presence: symptoms present Lower urinary tract symptom detail: urinary retention Qualified Code(s): N40.1 - Benign prostatic hyperplasia with lower urinary tract symptoms; R33.8 - Other retention of urine (12) Delirium: (13) UTI due to extended-spectrum beta lactamase (ESBL) producing Escherichia coli: PLAN: Plan 1. Continue therapy 2. His son has been very helpful and capable when working with his father and therapy. He feels that he will be able to appropriately assist in his father's care when he is discharged. 3. Nursing is to contact his surgeon to find out if we would be able to remove the han and if he would like imaging. 4. Plan voiding trial Saturday. Continue Proscar and Flomax. 5. No diarrhea, mild soreness, or painful swallowing. 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 Charges/Coding Visit Charges Inpatient E&M: 56255 Subs Hosp L1
[2023-09-13] MEDS: QUEtiapine 25 MG Tablet 37.5 MG PO (20:58)
[2023-09-13] MEDS: Atorvastatin Calcium 10 MG Tablet PO (20:58)
[2023-09-13 21:00] VITALS: BP 164/77; PULSE 70; RESP 17; TEMP 37.3; O2SAT 95
[2023-09-13] MEDS: Petrolatum 33% Tube 1 APPLIC TOPICAL (21:01)
[2023-09-13] MEDS: Latanoprost 0.005% 1 Bottle 1 DRP OPHTHALMIC (21:02)
--- NOTE | 2023-09-14 04:43 | NURSING ---
Reviewed and agree with Maria E MAC, documentation and assessment charting.
[2023-09-14] MEDS: Enoxaparin 40 MG/0.4 ML Syringe SC (05:06)
[2023-09-14] MEDS: traMADol 50 MG Tablet 25 MG PO ×3 (05:07→22:17)
[2023-09-14] MEDS: Acetaminophen 325 MG Tablet 650 MG PO ×4 (05:07→22:17)
[2023-09-14] MEDS: Levothyroxine 150 MCG Tablet PO (05:07)
[2023-09-14 05:20] LABS: Absolute Lymphocyte Count 1.79 X10^3/uL (0.83-4.51); Absolute Neutrophil Count 5.8 X10^3/uL (2.0-7.7); Basophil# 0.06 X10^3/uL; Basophil% 0.7 % (0-1); Eosinophil# 0.27 X10^3/uL; Hematocrit 34.6 % (40-54); Hemoglobin 11.2 g/dL (13.0-16.5); Lymphocyte # 1.79 X10^3/ul (0.83-4.51); Lymphocyte % 20.2 % (19-41); Mean Corp Hgb Conc 32.4 g/dL (32-36); Mean Corpuscular Hgb 33.4 pg (27.0-32.0); Mean Corpuscular Volume 103.3 fL (80-94); Mean Platelet Vol. 9.4 fl (6.2-12.0); Monocyte% 7.9 % (0-10); NRBC Flagged by Analyzer 0 % (0-5); Neutrophil # 5.75 X10^3/uL (2.7-7.7); Neutrophil % 64.8 % (47-70); Platelet Count 305 K/mm3 (150-450); RBC Distribution Width CV 12.5 % (11.6-14.6); RBC Distribution Width SD 46.6 fl (35.1-43.9); Red Blood Count 3.35 M/mm3 (4.6-6.2); White Blood Count 8.9 K/mm3 (4.4-11.0)
[2023-09-14 05:43] LABS: Anion Gap 7 (5-15); BUN 14 mg/dL (7-18); Calcium,Total 9.5 mg/dL (8.5-10.1); Chloride 109 mmol/L (98-107); Creatinine, Serum 0.78 mg/dL (0.70-1.30); EST Glomerular Filtration Rate 100 mL/min (>60); Est Glom Filt Rate - Afr Amer 121 mL/min (>60); Estimated Creatinine Clearance 81.96 ml/min; Glucose 105 mg/dL (74-106); Magnesium 2.4 mg/dL (1.6-2.6); Potassium 3.9 mmol/L (3.5-5.1); Sodium Level 142 mmol/L (136-145)
[2023-09-14 07:30] VITALS: BP 162/83; PULSE 60; RESP 16; TEMP 36.7; O2SAT 92
[2023-09-14] MEDS: Pantoprazole Sodium 20 MG Tablet PO (07:56)
[2023-09-14] MEDS: amLODIPine 5 MG Tablet PO (07:56)
[2023-09-14] MEDS: Tamsulosin HCl 0.4 MG Capsule PO (07:56)
[2023-09-14] MEDS: Finasteride 5 MG Tablet PO (07:56)
[2023-09-14] MEDS: Amox/Clav 400mg/5ml Susp 400 MG PO ×3 (07:56→16:47)
[2023-09-14] MEDS: Losartan Potassium 100 MG Tablet PO (07:56)
[2023-09-14] MEDS: Senna Tablet 1 TABLET PO (07:57)
[2023-09-14] MEDS: QUEtiapine 25 MG Tablet PO (07:57)
[2023-09-14] MEDS: Polyethylene Glycol 3350 17 GM PACKET PO (11:36)
[2023-09-14] MEDS: Nystatin Powder 15gm Bottle 1 APPLIC TOPICAL ×2 (11:37→20:13)
[2023-09-14 19:46] VITALS: BP 125/59; PULSE 64; RESP 17; TEMP 36.9; O2SAT 94
[2023-09-14] MEDS: QUEtiapine 25 MG Tablet 37.5 MG PO (20:07)
[2023-09-14] MEDS: Atorvastatin Calcium 10 MG Tablet PO (20:08)
[2023-09-14] MEDS: Latanoprost 0.005% 1 Bottle 1 DRP OPHTHALMIC (20:09)
[2023-09-14] MEDS: Petrolatum 33% Tube 1 APPLIC TOPICAL (20:14)
[2023-09-15] MEDS: Acetaminophen 325 MG Tablet 650 MG PO ×4 (06:16→20:25)
[2023-09-15] MEDS: traMADol 50 MG Tablet 25 MG PO ×3 (06:17→20:24)
[2023-09-15] MEDS: Enoxaparin 40 MG/0.4 ML Syringe SC (06:18)
[2023-09-15] MEDS: Levothyroxine 150 MCG Tablet PO (06:18)
[2023-09-15] MEDS: QUEtiapine 25 MG Tablet PO (07:46)
[2023-09-15] MEDS: Losartan Potassium 100 MG Tablet PO (07:46)
[2023-09-15] MEDS: Tamsulosin HCl 0.4 MG Capsule PO (07:46)
[2023-09-15] MEDS: amLODIPine 5 MG Tablet PO (07:46)
[2023-09-15] MEDS: Finasteride 5 MG Tablet PO (07:46)
[2023-09-15] MEDS: Pantoprazole Sodium 20 MG Tablet PO (07:46)
[2023-09-15] MEDS: Amox/Clav 400mg/5ml Susp 400 MG PO ×3 (07:46→16:06)
[2023-09-15] MEDS: Nystatin Powder 15gm Bottle 1 APPLIC TOPICAL ×2 (07:47→20:29)
[2023-09-15 08:10] VITALS: BP 168/86; PULSE 89; RESP 18; TEMP 36.8; O2SAT 94
[2023-09-15 20:12] VITALS: BP 136/65; PULSE 65; RESP 18; TEMP 36.8; O2SAT 96
[2023-09-15] MEDS: Latanoprost 0.005% 1 Bottle 1 DRP OPHTHALMIC (20:25)
[2023-09-15] MEDS: QUEtiapine 25 MG Tablet 37.5 MG PO (20:25)
[2023-09-15] MEDS: Atorvastatin Calcium 10 MG Tablet PO (20:26)
[2023-09-15] MEDS: Petrolatum 33% Tube 1 APPLIC TOPICAL (20:29)
[2023-09-16] MEDS: Levothyroxine 150 MCG Tablet PO (06:32)
[2023-09-16] MEDS: Acetaminophen 325 MG Tablet 650 MG PO ×4 (06:32→23:30)
[2023-09-16] MEDS: traMADol 50 MG Tablet 25 MG PO ×3 (06:33→20:53)
[2023-09-16] MEDS: Enoxaparin 40 MG/0.4 ML Syringe SC (06:33)
[2023-09-16] MEDS: Finasteride 5 MG Tablet PO (07:40)
[2023-09-16] MEDS: amLODIPine 5 MG Tablet PO (07:40)
[2023-09-16] MEDS: Tamsulosin HCl 0.4 MG Capsule PO (07:40)
[2023-09-16] MEDS: Losartan Potassium 100 MG Tablet PO (07:40)
[2023-09-16] MEDS: Pantoprazole Sodium 20 MG Tablet PO (07:41)
[2023-09-16] MEDS: QUEtiapine 25 MG Tablet PO (07:41)
[2023-09-16] MEDS: Amox/Clav 400mg/5ml Susp 400 MG PO ×3 (07:41→16:19)
[2023-09-16 07:42] VITALS: BP 178/78; PULSE 67; RESP 18; TEMP 36.7; O2SAT 95
--- NOTE | 2023-09-16 08:21 | NURSING ---
Received call from Dr Rothman office. han are allowed to be removed today and we are to apply steri strips over incision. They will call back with f/u appt time.
--- NOTE | 2023-09-16 11:30 | PN_ITS ---
Subjective Subjective Earl was seen on team rounds today. His and son were present in the room Afebrile VSS - BP is high in the AM Maintaining appropriate oxygen saturation on RA Oral intake - FOOD good FLUIDS good He is incontinent of both urine and stool. Nursing reports that stool has been loose. Discussed with nursing - no problems that need addressed Reviewed the THERAPY notes Medication list reviewed. He denies pain. He is eating well and sleeping well at night. Much more cooperative with therapy. Having both urinary and fecal incontinence. Fecal incontinence could be related to Augmentin. Not really having diarrhea. He did not have to be straight cath'd over the weekend but, he is incontinent of urine the minute he stands up and he is not able to summon the nurses when he feels like he has to urinate. Denies burning with urination. Not coughing, No conversational dyspnea. [place] were removed today and steri strips applied. Objective Data Objective Data Vital Signs: Vital Signs Temp Pulse Resp BP Pulse Ox O2 Del Method O2 Flow Rate 98.1 F 67 18 178/78 H 95 Room Air 2 09/16/23 07:42 09/16/23 07:42 09/16/23 07:42 09/16/23 07:42 09/16/23 07:42 09/16/23 07:42 09/10/23 22:00 Oxygen Flow Rate (L/min) 2 Oxygen Delivery Method Room Air Weight: 257 lb 2 oz Body Mass Index (BMI) 38.0 Intake & Output: Intake and Output for Last 24 Hours 09/14/23 09/15/23 09/16/23 23:59 23:59 23:59 Intake Total 1740 / 1940 2120 / 2120 360 / 360 Output Total 1250 / 1625 1375 / 1375 Balance 490 / 315 745 / 745 360 / 360 Lab / Micro Data 09/14/23 05:12 09/14/23 05:12 Micro: Microbiology 09/06/23 00:40 Urine Catheter - Sebastian Urine Culture - Final ESBL Escherichia coli Physical Exam Narrative Exam was difficult due to the pt being uncooperative. Const alert and no apparent distress Constitutional Narrative: Intermittently drowsy and awake. Caustic when awake but, his is able to calm him down. He periodically yells out as though in pain........had not received any pain medication since yesterday. He is hallucinating and seeing things that are not there. Appears pale. General Appearance: cooperative Orientation / Consciousness: confused HEENT moist oral mucous membranes Eyes EOMs intact bilaterally, conjunctivae normal and no scleral icterus General Eye: normal appearance of both eyes Neck No nuchal rigidity Chest Chest: symmetrical chest wall rise Resp clear to auscultation bilaterally Resp Narrative: Initially had a few coarse crackles in the bases but these mostly cleared after a few deep breaths. Effort and Inspection: Negative for tachypneic Cardio regular rate and regular rhythm Cardio Narrative: No ectopy GI normal to inspection, nondistended, normoactive bowel sounds, soft to palpation and non-tender GI Narrative: No guarding with palpation Extremity no calf tenderness Extremity Narrative: Very dry skin over the feet and the distal LE's General Extremity: Negative for edema Skin no jaundice Skin Narrative: Dry skin Rashes: no rashes Wound Narrative: The han were removed today. The incision is intact with no dehiscence. There is no drew-incisional erythema and no increased warmth to touch in the drew-incisional area. No discharge. Hair: male pattern alopecia Neuro Neuro Narrative: Moving all extremities Psych Psych Narrative: Inappropriate, aggressive at times. Nasty with the nursing staff when they are trying to help him. Verbally abusive Appearance: unkempt Attitude: belligerent, agitated and aggressive Activity / Motor Behavior: restless Assessment & Plan Assessment/Plan (1) Debility: (2) Fall: QUALIFIERS: Encounter type: subsequent encounter Qualified Code(s): W19.XXXD - Unspecified fall, subsequent encounter (3) Subdural hematoma: (4) TBI (traumatic brain injury): QUALIFIERS: Encounter type: subsequent encounter Loss of consciousness presence/duration: without LOC Qualified Code(s): S06.9X0D - Unspecified intracranial injury without loss of consciousness, subsequent encounter (5) T11 vertebral fracture: QUALIFIERS: Encounter type: subsequent encounter Fracture type: c losed Fracture morphology: unspecified fracture morphology (6) History of spinal fusion: (7) Urine retention: (8) Dementia: QUALIFIERS: Dementia type: associated with other underlying disease Dementia severity: severe Dementia behavioral or psychological symptom: without behavioral, psychotic, or mood disturbance or anxiety Q ualified Code(s): F02.C0 - Dementia in other diseases classified elsewhere, severe, without behavioral disturbance, psychotic disturbance, mood disturbance, and anxiety (9) Ventriculo-peritoneal shunt status: (10) Diabetes mellitus, type 2: QUALIFIERS: Diabetes mellitus dedicated intermodal truck driver insulin use: without halfway use Diabetes mellitus complication status: without complication Qualified Code(s): E11.9 - Type 2 diabetes mellitus without complications (11) BPH (benign prostatic hyperplasia): QUALIFIERS: Lower urinary tract symptom presence: symptoms present Lower urinary tract symptom detail: urinary retention Qualified Code(s): N40.1 - Benign prostatic hyperplasia with lower urinary tract symptoms; R33.8 - Other retention of urine (12) Delirium: (13) UTI due to extended-spectrum beta lactamase (ESBL) producing Escherichia coli: PLAN: Plan 1. Continue therapy 2. Check 3 more post void residuals 3. Add lactobacillus 1 twice daily to the current drug regimen. 4. He has an appt at [facility] to have a CT scan of his back on Saturday at 2 PM. After discussion with the family we decided he will be discharged on Saturday in the morning and then go to CT and then on to home. Antibiotic is to finish on the which is . Family is good with this plan and feel they will be able to provide adequate support at home. 5. will discharge on Seroquel.....hopefully can be tapered off once he is home. 6. BP's are elevated at times but, it depends on how agitated he is. At this point with severe dementia I do not think anything can be gained by increasing medication. I think we will get a truer picture of what the BP is doing when he is home. Charges/Coding Visit Charges Inpatient E&M: 36614 Subs Hosp L2
[2023-09-16] MEDS: Lactobacillis Acidophilus 1 CAP PO ×2 (14:34→20:55)
--- NOTE | 2023-09-16 14:40 | CASEMGMT ---
Team meeting held today with pt and pt's and son present. PT/OT/ST/SN updated pt, famiy and team on pt progress with therapy. Pt continues to require assist with care and will need 24 hour care at discharge. Pt's family has been doing family traning and feel they can provide needed care. Discharge date set for 09/19. Therapy is recommending home health PT/OT/FAT PURIFICATION WORKER and family is agreeable. Pt does have a FWW at home. SW will continue to follow for dc planning. CARSON Villa
[2023-09-16 19:00] VITALS: BP 147/75; PULSE 74; RESP 18; TEMP 37.3; O2SAT 94
[2023-09-16 20:45] VITALS: PULSE 74; RESP 18; O2SAT 94
[2023-09-16] MEDS: Petrolatum 33% Tube 1 APPLIC TOPICAL (20:53)
[2023-09-16] MEDS: QUEtiapine 25 MG Tablet 37.5 MG PO (20:54)
[2023-09-16] MEDS: Senna Tablet 1 TABLET PO (20:54)
[2023-09-16] MEDS: Atorvastatin Calcium 10 MG Tablet PO (20:55)
[2023-09-16] MEDS: Nystatin Powder 15gm Bottle 1 APPLIC TOPICAL (20:56)
[2023-09-16] MEDS: Latanoprost 0.005% 1 Bottle 1 DRP OPHTHALMIC (20:58)
--- NOTE | 2023-09-17 04:32 | NURSING ---
AGREE WITH Maria E MAC, DOCUEMENTATION AND ASSESSMENT CHARTING.
[2023-09-17] MEDS: Enoxaparin 40 MG/0.4 ML Syringe SC (05:51)
[2023-09-17] MEDS: Acetaminophen 325 MG Tablet 650 MG PO ×4 (05:51→23:36)
[2023-09-17] MEDS: Levothyroxine 150 MCG Tablet PO (05:51)
[2023-09-17] MEDS: traMADol 50 MG Tablet 25 MG PO ×3 (05:51→20:09)
[2023-09-17 07:46] VITALS: BP 161/68; PULSE 63; RESP 16; TEMP 36.8; O2SAT 96
[2023-09-17] MEDS: QUEtiapine 25 MG Tablet PO (08:09)
[2023-09-17] MEDS: Pantoprazole Sodium 20 MG Tablet PO (08:09)
[2023-09-17] MEDS: amLODIPine 5 MG Tablet PO (08:09)
[2023-09-17] MEDS: Losartan Potassium 100 MG Tablet PO (08:09)
[2023-09-17] MEDS: Senna Tablet 1 TABLET PO (08:09)
[2023-09-17] MEDS: Lactobacillis Acidophilus 1 CAP PO ×2 (08:09→20:09)
[2023-09-17] MEDS: Finasteride 5 MG Tablet PO (08:09)
[2023-09-17] MEDS: Tamsulosin HCl 0.4 MG Capsule PO (08:09)
[2023-09-17] MEDS: Amox/Clav 400mg/5ml Susp 400 MG PO ×3 (08:10→17:02)
[2023-09-17] MEDS: Nystatin Powder 15gm Bottle 1 APPLIC TOPICAL (08:10)
--- NOTE | 2023-09-17 11:11 | CASEMGMT ---
Addendum entered by Eileen Ortega 09/17/23 11:30: [facility] is able to accept pt for PT/OT/WELFARE SUPERVISOR services with start of care on 09/22. Pt's notified. CARSON Villa Original Note: Social Work SW met with pt's to discuss discharge. DC date has been set for 09/19 and pt's is agreeable to this and feels she can provide the needed care for pt and 24 hour care. Therapy is recommending home health PT/OT/WELFARE SUPERVISOR and pt is agreeable. A list of home health providers including quality and resource use data and consistent with the patient?s preferred geographic region, medical needs, and insurance network were provided from the [employer] Guide. Pt's reviewed list and states she has no preference on companies used. Referral made to [facility]. SW will await determination of acceptance. Pt has all needed DME. CARSON Villa
--- NOTE | 2023-09-17 15:56 | PN_ITS ---
Subjective Subjective Afebrile VSS -systolic blood pressure is mild to moderately elevated at times but this may be related to agitation. With severe dementia at the age of 87 I will defer treatment blood pressure to his primary care doctor. I suspect his blood pressures will be lower at home. Maintaining appropriate oxygen saturation on RA Oral intake - FOOD good FLUIDS good Postvoid residuals are less than 300. Discussed with nursing - no problems that need addressed. He has been pleasant and cooperative with nursing. Remains incontinent of both stool and urine. Reviewed the THERAPY notes Medication list reviewed. He has no complaints today. Has been polite with me and talkative. He is cooperating well with the therapists now and with nursing. No coughing, no conversational dyspnea, not tachycardic, eating well, not complaining of back pain. Objective Data Objective Data Vital Signs: Vital Signs Temp Pulse Resp BP Pulse Ox O2 Del Method O2 Flow Rate 98.2 F 63 16 161/68 H 96 Room Air 2 09/17/23 07:46 09/17/23 07:46 09/17/23 07:46 09/17/23 07:46 09/17/23 07:46 09/16/23 20:45 09/10/23 22:00 Oxygen Flow Rate (L/min) 2 Oxygen Delivery Method Room Air Weight: 257 lb 2 oz Body Mass Index (BMI) 38.0 Intake & Output: Intake and Output for Last 24 Hours 09/15/23 09/16/23 09/17/23 23:59 23:59 23:59 Intake Total 2120 / 2120 1600 / 1600 600 / 600 Output Total 1375 / 1375 470 / 470 445 / 445 Balance 745 / 745 1130 / 1130 155 / 155 Lab / Micro Data 09/14/23 05:12 09/14/23 05:12 Micro: Microbiology 09/06/23 00:40 Urine Catheter - Seabstian Urine Culture - Final ESBL Escherichia coli Physical Exam Const alert General Appearance: cooperative Orientation / Consciousness: confused HEENT moist oral mucous membranes Resp normal respiratory effort and clear to auscultation bilaterally Cardio regular rate and regular rhythm GI normal to inspection, nondistended, normoactive bowel sounds, soft to palpation and non-tender GI Narrative: No guarding with palpation Extremity General Extremity: Negative for edema Skin General Skin Exam: no breakdown Rashes: no rashes Assessment & Plan Assessment/Plan (1) Debility: (2) Fall: QUALIFIERS: Encounter type: subsequent encounter Qualified Code(s): W19.XXXD - Unspecified fall, subsequent encounter (3) Subdural hematoma: (4) TBI (traumatic brain injury): QUALIFIERS: Encounter type: subsequent encounter Loss of consciousness presence/duration: without LOC Qualified Code(s): S06.9X0D - Unspecified intracranial injury without loss of consciousness, subsequent encounter (5) T11 vertebral fracture: QUALIFIERS: Encounter type: subsequent encounter Fracture type: c losed Fracture morphology: unspecified fracture morphology (6) History of spinal fusion: (7) Urine retention: (8) Dementia: QUALIFIERS: Dementia type: associated with other underlying disease Dementia severity: severe Dementia behavioral or psychological symptom: without behavioral, psychotic, or mood disturbance or anxiety Q ualified Code(s): F02.C0 - Dementia in other diseases classified elsewhere, severe, without behavioral disturbance, psychotic disturbance, mood disturbance, and anxiety (9) Ventriculo-peritoneal shunt status: (10) Diabetes mellitus, type 2: QUALIFIERS: Diabetes mellitus intermission coordinator insulin use: without intermission coordinator use Diabetes mellitus complication status: without complication Qualified Code(s): E11.9 - Type 2 diabetes mellitus without complications (11) BPH (benign prostatic hyperplasia): QUALIFIERS: Lower urinary tract symptom presence: symptoms present Lower urinary tract symptom detail: urinary retention Qualified Code(s): N40.1 - Benign prostatic hyperplasia with lower urinary tract symptoms; R33.8 - Other retention of urine (12) Delirium: (13) UTI due to extended-spectrum beta lactamase (ESBL) producing Escherichia coli: PLAN: Plan 1. Continue therapy 2. No changes to the drug regimen. 3. Plan discharge for Saturday to home. Charges/Coding Visit Charges Inpatient E&M: 64779 [facility] Hosp L1
[2023-09-17 18:58] VITALS: BP 157/73; PULSE 77; RESP 18; TEMP 37.2; O2SAT 96
[2023-09-17 19:30] VITALS: PULSE 77; RESP 18; O2SAT 93
[2023-09-17] MEDS: QUEtiapine 25 MG Tablet 37.5 MG PO (20:09)
[2023-09-17] MEDS: Atorvastatin Calcium 10 MG Tablet PO (20:11)
[2023-09-17] MEDS: Petrolatum 33% Tube 1 APPLIC TOPICAL (20:12)
[2023-09-17] MEDS: Latanoprost 0.005% 1 Bottle 1 DRP OPHTHALMIC (20:12)
--- NOTE | 2023-09-18 02:29 | NURSING ---
REVIEWED AND AGREE WITH Maria E MAC, DOCUMENTATION AND ASSESSMENT CHARTING.
[2023-09-18] MEDS: traMADol 50 MG Tablet 25 MG PO ×3 (06:49→21:40)
[2023-09-18] MEDS: Acetaminophen 325 MG Tablet 650 MG PO ×4 (06:50→21:40)
[2023-09-18] MEDS: Levothyroxine 150 MCG Tablet PO (06:50)
[2023-09-18] MEDS: Enoxaparin 40 MG/0.4 ML Syringe SC (06:50)
[2023-09-18 07:56] VITALS: BP 151/73; PULSE 62; RESP 16; TEMP 36.4; O2SAT 93
[2023-09-18] MEDS: Tamsulosin HCl 0.4 MG Capsule PO (08:13)
[2023-09-18] MEDS: Pantoprazole Sodium 20 MG Tablet PO (08:13)
[2023-09-18] MEDS: Finasteride 5 MG Tablet PO (08:13)
[2023-09-18] MEDS: QUEtiapine 25 MG Tablet PO (08:13)
[2023-09-18] MEDS: Losartan Potassium 100 MG Tablet PO (08:13)
[2023-09-18] MEDS: amLODIPine 5 MG Tablet PO (08:13)
[2023-09-18] MEDS: Senna Tablet 1 TABLET PO ×2 (08:13→20:47)
[2023-09-18] MEDS: Lactobacillis Acidophilus 1 CAP PO ×2 (08:14→20:47)
[2023-09-18] MEDS: Amox/Clav 400mg/5ml Susp 400 MG PO ×3 (08:15→17:20)
[2023-09-18 20:00] VITALS: BP 146/66; PULSE 60; RESP 17; TEMP 36.4; O2SAT 93
[2023-09-18] MEDS: QUEtiapine 25 MG Tablet 37.5 MG PO (20:47)
[2023-09-18] MEDS: Atorvastatin Calcium 10 MG Tablet PO (20:47)
[2023-09-18] MEDS: Latanoprost 0.005% 1 Bottle 1 DRP OPHTHALMIC (20:51)
[2023-09-19] MEDS: traMADol 50 MG Tablet 25 MG PO ×3 (06:16→21:05)
[2023-09-19] MEDS: Levothyroxine 150 MCG Tablet PO (06:16)
[2023-09-19] MEDS: Enoxaparin 40 MG/0.4 ML Syringe SC (06:17)
[2023-09-19] MEDS: Acetaminophen 325 MG Tablet 650 MG PO ×2 (06:17→17:08)
[2023-09-19 07:36] VITALS: BP 161/73; PULSE 79; RESP 17; TEMP 36.3; O2SAT 96
[2023-09-19] MEDS: Senna Tablet 1 TABLET PO (08:07)
[2023-09-19] MEDS: Losartan Potassium 100 MG Tablet PO (08:07)
[2023-09-19] MEDS: amLODIPine 5 MG Tablet PO (08:07)
[2023-09-19] MEDS: Finasteride 5 MG Tablet PO (08:07)
[2023-09-19] MEDS: Amox/Clav 400mg/5ml Susp 400 MG PO ×2 (08:07→14:08)
[2023-09-19] MEDS: Pantoprazole Sodium 20 MG Tablet PO (08:07)
[2023-09-19] MEDS: Lactobacillis Acidophilus 1 CAP PO ×2 (08:08→21:05)
[2023-09-19] MEDS: QUEtiapine 25 MG Tablet PO (08:08)
[2023-09-19] MEDS: Tamsulosin HCl 0.4 MG Capsule PO (08:08)
--- NOTE | 2023-09-19 12:04 | PN_ITS ---
Subjective Subjective Afebrile VSS -blood pressures over the past 24 hours have ranged from 146/66 to 161/73. Maintaining appropriate oxygen saturation on RA Oral intake - FOOD good FLUIDS good Discussed with nursing - no problems that need addressed Reviewed the THERAPY notes Medication list reviewed. Currently on losartan 100 mg daily and Norvasc 5 mg daily for blood pressure control. Systolic blood pressures are mild to moderately elevated however he is taking Proscar and Flomax for BPH. Since the addition of the Proscar we have not had to straight cath. He is incontinent of urine but the postvoid residuals are less than 300. No complaints. Denies pain, cough, shortness of breath. Objective Data Objective Data Vital Signs: Vital Signs Temp Pulse Resp BP Pulse Ox O2 Del Method O2 Flow Rate 97.3 F L 79 17 161/73 H 96 Room Air 2 09/19/23 07:36 09/19/23 07:36 09/19/23 07:36 09/19/23 07:36 09/19/23 07:36 09/19/23 07:36 09/10/23 22:00 Oxygen Flow Rate (L/min) 2 Oxygen Delivery Method Room Air Weight: 257 lb 2 oz Body Mass Index (BMI) 38.0 Intake & Output: Intake and Output for Last 24 Hours 09/17/23 09/18/23 09/19/23 23:59 23:59 23:59 Intake Total 1200 / 1200 840 / 840 680 / 680 Output Total 445 / 445 1550 / 1550 400 / 400 Balance 755 / 755 -710 / -710 280 / 280 Lab / Micro Data 09/14/23 05:12 09/14/23 05:12 Micro: Microbiology 09/06/23 00:40 Urine Catheter - Sebastian Urine Culture - Final ESBL Escherichia coli Physical Exam Const alert HEENT moist oral mucous membranes Resp clear to auscultation bilaterally Cardio regular rate, regular rhythm and no gallops GI normal to inspection, nondistended, normoactive bowel sounds, soft to palpation and non-tender Extremity no calf tenderness General Extremity: Negative for edema Skin General Skin Exam: no breakdown Rashes: no rashes Wound Narrative: The incision is healing very well. There is no dehiscence, discharge, drew- incisional erythema or swelling. Assessment & Plan Assessment/Plan (1) Debility: PLAN: Due to a fall resulting in a SDH and unstable fx of T11. He is S/P T9-L2 fusion. (2) Fall: QUALIFIERS: Encounter type: subsequent encounter Qualified Code(s): W19.XXXD - Unspecified fall, subsequent encounter PLAN: Fell backwards down steps and hit his head. (3) Subdural hematoma: (4) TBI (traumatic brain injury): QUALIFIERS: Encounter type: subsequent encounter Loss of consciousness presence/duration: without LOC Qualified Code(s): S06.9X0D - Unspecified intracranial injury without loss of consciousness, subsequent encounter (5) T11 vertebral fracture: QUALIFIERS: Encounter type: subsequent encounter Fracture type: c losed Fracture morphology: unspecified fracture morphology Fracture healing: w ith routine healing Qualified Code(s): S22.089D - Unspecified fracture of T11- T12 vertebra, subsequent encounter for fracture with routine healing (6) History of spinal fusion: (7) Dementia: QUALIFIERS: Dementia type: associated with other underlying disease Dementia severity: severe Dementia behavioral or psychological symptom: without behavioral, psychotic, or mood disturbance or anxiety Q ualified Code(s): F02.C0 - Dementia in other diseases classified elsewhere, severe, without behavioral disturbance, psychotic disturbance, mood disturbance, and anxiety PLAN: Due to a hx of NPH. (8) BPH (benign prostatic hyperplasia): QUALIFIERS: Lower urinary tract symptom presence: symptoms present Lower urinary tract symptom detail: urinary retention Qualified Code(s): N40.1 - Benign prostatic hyperplasia with lower urinary tract symptoms; R33.8 - Other retention of urine PLAN: He failed a voiding trial on Flomax so Sebastian was reinserted and he was started on Proscar 5 mg daily. After 4-5 days orthostatics were negative. The Sebastian was removed and he had to be straight cath'd for a few days but, after a few days the PVR's were less than 300 and he has not had to be straight cath'd for the past week at the time of discharge. PLAN: Plan 1. Plan discharge home tomorrow with family for support and home health care 2. Check orthostatics today and if they are negative consider increasing amlodipine to twice daily3. I plan on continuing the Seroquel at DC. If he remains cooperative at home could consider tapering. I would first DC the dose of 12.5 mg in the AM and then wait 1 week. If at the end of that week he is cooperative and not agitated or aggressive with family would decrease the HS dose to 25 mg and re-evaluate behavior in 2 weeks. If he is stable could consider discontinuing the scheduled Seroquel but, continue 25 mg PRN at HS for agitation. Charges/Coding Visit Charges Inpatient E&M: 91596 Subs Hosp L1
[2023-09-19 12:05] VITALS: BP 120/53; BP 124/61; BP 126/60; PULSE 82; PULSE 84; PULSE 98
--- NOTE | 2023-09-19 14:20 | DCINST_ITS ---
Discharge Instructions Diet Discharge Diet: No restrictions Activity Discharge Activity: May Not Drive, May Shower and Use Walker Weight Bearing Status: Full weight bearing Keep extremity elevated above heart level: Legs Dressing / Incision Call your doctor if your incision/area has: Continuous Slow Oozing, Sudden Increased Bleeding, Increased Pain/ Swelling, Increased Redness, Foul Smelling Discharge and Swelling at the incision site Call your doctor if you observe: Fever of 101 or Higher, Inability to urinate, Shortness of breath, Dizziness, Fainting spells, Chest pain, Calf discomfort, Uncontrolled pain and - (Any sudden change in behavior or level of alertness, coughing with eating/swallowing.) Suture Line Care: Avoid Pulling/Pushing and Avoid Pinching/Bending Cleanse incision/area with: Soap & Water Additional Dressing/Incision Instructions:: No dressing needed but, if your clothes are irritating the incision you can cover with a dry dressing. Follow Up Care Please Follow Up With: Dr. Rachel Forbes When: You will also need to follow up Danielle Rm NP on 09/24/23 at 4:25 PM, Dr. Rg De La Fuente on 09/25/23 at 10:30 AM (for the bleeding in the brain). Test Results: Test results from this visit will be discussed in further detail at your follow- up appointment, if applicable. Pending Tests Upon Discharge: none Discharge Plan Admission Admit Date/Time: 09/04/23 20:30 Primary Reason for Your Visit: Debility due to fall with SDH and vertebral fx/spinal fusion of T9-L2 Attending Provider: Gladys De Leon Primary Care Provider: Violet Dunham NP Instructions Patient Instructions: Caring for Your Incision, Dysphagia Aspiration, ED Urinary Tract Infections in Men Additional Instructions / Restrictions: 1. I think it would be a good idea to continue Seroquel at the current dose until Joshua is done with doctors appts. Seroquel helps keep his agitation under control and he has been doing very well on the current dose. If in a couple weeks he is doing well at home with no issues would discontinue the dose in the AM but, continue the bedtime dose. People with dementia often have trouble sleeping and get up and wander at night. You may be able to get better sleep if Joshua is getting better sleep. If he continues to do well after eliminating the morning dose then you can cut the bedtime dose in half. If he continues to do well you can try discontinuing in 10-14 days. 2. I have given you some literature to read on dysphagia and aspiration. Patients with dementia often eventually develop dysphagia (trouble swallowing). This can lead to the fluids and food going down the wrong pipe and this can lead to pneumonia. If this happens Joshua will need to see speech therapy. Sometimes when the swallowing gets bad you have to start thickening liquids to prevent aspiration of food into the lungs. 3. I have also given you some literature on urinary tract infections (UTI). Joshua is now on 2 medications to tx an enlarged prostate to help the urine drain better. He was retaining a large amount of urine in the bladder after urinating early in the admission to rehab. We added a drug to help shrink the prostate and it is called Proscar. He is still retaining some urine after he pees but, the amount is less than 300 cc's and so I see no need to put in a catheter. When you retain urine the risk for a UTI increases. The symptoms of a UTI are listed in the handout about UTI's in men. ANY INFECTION in a dementia patient can lead to increased confusion and behavioral problems. If he has a sudden change in his mental status have him checked out at the doctors because he could have an infection. Change in mental status in elderly people is often the only sign of a UTI. 4. I hope everything goes well at home. If you have any questions after you get home please do not hesitate to call me. OFFICE: [phone] CELL: [phone] Discharge Orders/Prescriptions Prescriptions: New acetaminophen 325 mg Tablet 650 mg PO Q6H Qty: 1 0RF quetiapine 25 mg Tablet See Rx Instructions .ROUTE .COMPLEX Qty: 75 0RF Rx Instructions: 1 tab in the morning and 1 and 1/2 tabs at HS finasteride 5 mg Tablet 5 mg PO DAILY Qty: 30 0RF tramadol 50 mg Tablet 25 mg PO TID PRN (Reason: pain 4-10) Qty: 21 0RF Continued amlodipine 5 mg tablet 5 mg PO DAILY ammonium lactate 12 % lotion 1 applic topical PRN PRN (Reason: dry skin) atorvastatin 10 mg tablet 10 mg PO DAILY latanoprost 0.005 % drops 1 drp ophthalmic (eye) QHS levothyroxine 150 mcg tablet 150 mcg PO DAILY losartan 100 mg tablet 100 mg PO DAILY omeprazole 10 mg capsule,delayed release(DR/EC) 10 mg PO DAILY tamsulosin 0.4 mg capsule 0.4 mg PO DAILY Discontinued hydrochlorothiazide 25 mg tablet 25 mg PO DAILY melatonin 3 mg capsule 3 mg PO QHS Rx Instructions: take 2 tablets by mouth at bedtime. acetaminophen [Tylenol] 325 mg tablet 325 mg PO Q6H Rx Instructions: 2 tablets four times daily. oxycodone 5 mg tablet 5 mg PO Q8H PRN (Reason: pain (scale score 7-10)) polyethylene glycol 3350 [Miralax] 17 gram/dose powder 17 g PO BID Rx Instructions: dissolve dose in 4-8 ounces of liquid and take as directed. sennosides [senna] 8.6 mg tablet 8.6 mg PO BID Rx Instructions: take 2 tablets by mouth twice a day. Referrals / Follow Up: Rg De La Fuente [Other] - 09/25/23 10:30 am (Will see VIRIDIANA Arcos first for the brain hematoma. ) [facility] Adrienne Henry [Other] - 09/20/23 2:00 pm (Xray and CT) Rachel Burgess [Other] (Orthopedic ) Danielle Rm NP, [employer] [Non-Staff] - 09/24/23 4:25 pm (bring insurance card & photo ID) Disposition Disposition (needs filled in before D/C Order can be placed): Home Health Service
[2023-09-19 20:20] VITALS: BP 124/61; PULSE 84; RESP 17; TEMP 36.7; O2SAT 96
[2023-09-19] MEDS: Atorvastatin Calcium 10 MG Tablet PO (21:05)
[2023-09-19] MEDS: QUEtiapine 25 MG Tablet 37.5 MG PO (21:05)
[2023-09-19] MEDS: Latanoprost 0.005% 1 Bottle 1 DRP OPHTHALMIC (21:06)
[2023-09-19] MEDS: Petrolatum 33% Tube 1 APPLIC TOPICAL (21:07)
[2023-09-20] MEDS: traMADol 50 MG Tablet 25 MG PO (05:51)
[2023-09-20] MEDS: Enoxaparin 40 MG/0.4 ML Syringe SC (05:51)
[2023-09-20] MEDS: Acetaminophen 325 MG Tablet 650 MG PO (05:51)
[2023-09-20] MEDS: Levothyroxine 150 MCG Tablet PO (05:51)
[2023-09-20 06:00] VITALS: BMI 37.8
[2023-09-20 07:26] VITALS: BP 141/76; PULSE 71; RESP 18; TEMP 36.8; O2SAT 93
[2023-09-20] MEDS: Tamsulosin HCl 0.4 MG Capsule PO (07:34)
[2023-09-20] MEDS: Pantoprazole Sodium 20 MG Tablet PO (07:34)
[2023-09-20] MEDS: Lactobacillis Acidophilus 1 CAP PO (07:34)
[2023-09-20] MEDS: Losartan Potassium 100 MG Tablet PO (07:34)
[2023-09-20] MEDS: amLODIPine 5 MG Tablet PO (07:34)
[2023-09-20] MEDS: Finasteride 5 MG Tablet PO (07:35)
[2023-09-20] MEDS: QUEtiapine 25 MG Tablet PO (07:35)
--- NOTE | 2023-09-20 09:54 | CASEMGMT ---
Social Work SW met with pt and today to finalize discharge. Pt to discharge home today with and family providing 24 hour care. [facility] to provide services with start of care on 09/20 or 09/21. Pt has all needed DME. DC Disposition: Home with 24 hour care of family and [facility] [place]
[2023-09-20 10:39] VITALS: BP 141/76; PULSE 71; RESP 18; TEMP 36.8; O2SAT 93
--- NOTE | 2023-09-20 10:40 | PCM.DC.SUM ---
Providers Date of Admission: 09/04/23 Date of Discharge: 09/20/23 Primary Care Physician: KENDRICK SweetC Reason For Visit: T-11 FRACTURE Diagnosis Discharge Diagnosis (1) Debility: Status: Acute Code(s): R53.81 - Other malaise Plan: Due to a fall resulting in a SDH and unstable fx of T11. He is S/P T9-L2 fusion. (2) Fall: Status: Inactive Code(s): W19.XXXA - Unspecified fall, initial encounter Qualifiers: Encounter type: subsequent encounter Qualified Code(s): W19.XXXD - Unspecified fall, subsequent encounter Plan: Fell backwards down steps and hit his head. (3) Subdural hematoma: Status: Acute Code(s): S06.5XAA - Traumatic subdural hemorrhage with loss of consciousness status unknown, initial encounter (4) TBI (traumatic brain injury): Status: Acute Code(s): S06.9XAA - Unspecified intracranial injury with loss of consciousness status unknown, initial encounter Qualifiers: Encounter type: subsequent encounter Loss of consciousness presence/duration: without LOC Qualified Code(s): S06.9X0D - Unspecified intracranial injury without loss of consciousness, subsequent encounter (5) T11 vertebral fracture: Status: Acute Code(s): S22.089A - Unspecified fracture of T11-T12 vertebra, initial encounter for closed fracture Qualifiers: Encounter type: subsequent encounter Fracture healing: with routine healing Fracture morphology: unspecified fracture morphology Fracture type: closed Qualified Code(s): S22.089D - Unspecified fracture of T11-T12 vertebra, subsequent encounter for fracture with routine healing (6) History of spinal fusion: Status: Acute Code(s): Z98.1 - Arthrodesis status Plan: T9 through L2 fusion on 08/28/23 at [facility] by Dr. Rg De La Fuente. (7) Delirium: Status: Resolved Code(s): R41.0 - Disorientation, unspecified Plan: Restless, agitated and aggressive at presentation to rehab. Was not eating or drinking and was not cooperative with therapy. He was started on low dose Seroquel and the dose was gradually increased until the behavior was under control. On 50 mg at HS and 25 mg in the AM he became pleasant and cooperative and he was able to do 3 hours of therapy daily. (8) Urine retention: Status: Acute Code(s): R33.9 - Retention of urine, unspecified Plan: He had a Sebastian catheter while at [facility] for urine retention. this was discontinued just prior to transfer to [facility] rehab. He was retaining large amounts of urine at presentation to rehab. Sebastian was inserted and a UA was sent to the lab. UA showed positive nitrites and 10-25 WBCs with 4+ bacteria. He was started on Rocephin. The urine culture ultimately grew an ESBL E. coli which was resistant to Rocephin. He was transition to Augmentin and received 10 days of treatment. The UTI was likely due to the Sebastian he had at [facility]. His said that he has not had frequent UTI's in the past. (9) Dementia: Status: Chronic Code(s): F03.90 - Unspecified dementia, unspecified severity, without behavioral disturbance, psychotic disturbance, mood disturbance, and anxiety Qualifiers: Dementia behavioral or psychological symptom: without behavioral, psychotic, or mood disturbance or anxiety Dementia severity: severe Dementia type: associated with other underlying disease Qualified Code(s): F02.C0 - Dementia in other diseases classified elsewhere, severe, without behavioral disturbance, psychotic disturbance, mood disturbance, and anxiety Plan: Due to a hx of NPH. 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 (12) BPH (benign prostatic hyperplasia): Status: Chronic Code(s): N40.0 - Benign prostatic hyperplasia without lower urinary tract symptoms Qualifiers: Lower urinary tract symptom detail: urinary retention Lower urinary tract symptom presence: symptoms present Qualified Code(s): N40.1 - Benign prostatic hyperplasia with lower urinary tract symptoms; R33.8 - Other retention of urine Plan: He failed a voiding trial on Flomax so Sebastian was reinserted and he was started on Proscar 5 mg daily. After 4-5 days orthostatics were negative. The Sebastian was removed and he had to be straight cath'd for a few days but, after a few days the PVR's were less than 300 and he has not had to be straight cath'd for the past week at the time of discharge. (13) UTI due to extended-spectrum beta lactamase (ESBL) producing Escherichia coli: Status: Resolved Code(s): N39.0 - Urinary tract infection, site not specified; B96.29 - Other Escherichia coli [E. coli] as the cause of diseases classified elsewhere; Z16.12 - Extended spectrum beta lactamase (ESBL) resistance Plan: Present at admission to rehab. Likely catheter related. Had a Sebastian at [facility] until just prior to DC when it was discontinued. Plan 1. DC home on 09/20/23. 2. CT head and spine XRAYS to be done at [facility] at 2 PM on the day of discharge. 3. Follow up appts have been scheduled for him. Medications at Discharge Home Medications amlodipine 5 mg tablet 5 mg PO DAILY htn 09/04/23 ammonium lactate 12 % lotion 1 applic topical PRN PRN dry skin 09/04/23 atorvastatin 10 mg tablet 10 mg PO DAILY cholesterol 09/04/23 latanoprost 0.005 % eye drops 1 drp ophthalmic (eye) QHS eye drop 09/04/23 levothyroxine 150 mcg tablet 150 mcg PO DAILY . 09/04/23 losartan 100 mg tablet 100 mg PO DAILY . 09/04/23 omeprazole 10 mg capsule,delayed release 10 mg PO DAILY . 09/04/23 tamsulosin 0.4 mg capsule 0.4 mg PO DAILY retention 09/04/23 acetaminophen 325 mg tablet 650 mg (2 x 325 mg) PO Q6H #1 TAB 09/19/23 finasteride 5 mg tablet 5 mg PO DAILY #30 tabs 09/19/23 quetiapine 25 mg tablet See Rx Instructions .Route .COMPLEX #75 tabs 09/19/23 tramadol 50 mg tablet 25 mg (1/2 x 50 mg) PO TID PRN pain 4-10 #21 tabs 09/19/23 Hospital Course Operations - (Spinal fusion of T9-L2 with Dr. Rg De La Fuente at 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 CT of the brain showed a subdural hemorrhage measuring up to 5 mm without associated mass effect. He had a displaced/widened fracture through the anterior inferior endplate of T11 with a small volume of fluid/hemorrhage extending from the disc space into the ventral extra-axial space effacing the ventral thecal sac. He was seen in consultation by neurosurgery and orthopedic surgery. A repeat CT scan of his brain the day following his fall the brain bleed was stable and there was no indication for operative intervention. Orthopedic spine surgery obtained an MRI of the entire spine and had concerned that the fracture at T11 was unstable. He went to surgery on 08/28/2023 for a T9-L2 posterior spinal fusion with Dr. Rg De La Fuente. Post operatively he was seen by PT/OT/geriatrics and acute rehab was recommended at [place]. He was transferred to the acute inpt rehab unit at [facility] on 09/04/23 for 3 hours of therapy daily to restore function/independence at or near his level prior to the fall. While at [facility] he had a Sebastian catheter due to urine retention. It was discontinued just prior to discharge. At presentation to rehab he was retaining large amounts of urine while on Flomax 0.4 mg daily. A Sebastian was reinserted and a UA was sent to the lab. The UA was positive for nitrite and had pyuria and 4+ bacteria. He was started on Rocephin 1 g IV daily and urine culture was ordered. The urine culture ultimately grew E. coli ESBL which was resistant to Rocephin. He was transition to Augmentin and treated for 10 days. Urine at the time of discharge is clear and he is afebrile. We were told by [facility] that the patient had mild dementia however at the time of presentation to rehab he was restless, very agitated and had aggressive behavior. He was started on Seroquel 25 mg Q HS to control behavior. The dose was gradually increased to 50 mg at at bedtime and 25 mg every morning. With the Seroquel and treatment of the urinary tract infection he gradually became more cooperative and was able to actually do physical therapy. He still was agitated when his was not present. Joshua's Roxanna and also his son and dtr-in-law began coming in and participating with Joshua in his therapy sessions and Joshua was able to cooperate and actually able to do 3 hours of therapy a day. His appetite and intake improved and at the time of DC from rehab he is eating well and has a good fluid intake. Orthostatic VS were negative for orthostatic hypotension. Proscar 5 mg daily was added to his drug regimen. He had no complaints of lightheadedness and follow-up orthostatics were again negative for orthostatic hypotension. After several days on Proscar voiding trial was done and he was still retaining however, we straight cathed him for 48 hours as needed and after that time the postvoid residuals were all less than 300. A Sebastian catheter was not reinserted. He was discharged home on Flomax 0.4 mg daily and Proscar 5 mg daily. The urine at discharge is pale and clear. After we were able to get Cyrus's behavior under control he made good progress in therapy. At the time of discharge he is supervision/set up for eating, upper body dressing and grooming. He requires moderate assistance with bathing and lower body dressing. He needs minimal assistance with tub/shower transfer. He is able to do for sit to stands in 30 seconds with minimal assistance. He can ascend/descend two 6 inch steps at min assist with 2 handrails. He has ambulated up to 165 feet at contact-guard assist with a wheeled walker. Joshua's family was instrumental in getting Joshua to cooperate with therapy and they participated in the therapy sessions daily. They felt comfortable taking him home at [place] on 09/20/23. Joshua will get [facility] for PT/OT/QA INTERNSHIP. He has all the DME he will need already at home. Joshua was discharged on 09/20/23 and will go to the [facility] on [address] to have a CT of the head (follow up for SDH) and plain XRAYS of the spine. Appts have been scheduled for him to follow up with orthopedics and neurosurgery. Physical Exam Const alert, no apparent distress and well nourished General Appearance: cooperative and well developed Orientation / Consciousness: confused HEENT head/scalp atraumatic and moist oral mucous membranes HEENT Narrative: No evidence of thrush Eyes EOMs intact bilaterally Eyes Narrative: Conjunctiva is normal without injection and there is no scleral icterus. There is no discharge from the eyes and no mattering of the eyelashes. Neck General: trachea midline Resp normal respiratory effort and clear to auscultation bilaterally Resp Narrative: No cough with deep breathing. Effort and Inspection: Negative for tachypneic or labored Cardio regular rate, regular rhythm, no murmurs, no rub and no gallops Cardio Narrative: Rare ectopic. GI normal to inspection, nondistended, normoactive bowel sounds, soft to palpation and non-tender GI Narrative: No guarding with palpation Extremity no calf tenderness General Extremity: Negative for edema Skin General Skin Exam: no breakdown Rashes: no rashes Wound Narrative: The incision is intact with no dehiscence. No drew-incisional swelling or erythema. Neuro CN's II-XII intact bilaterally and no focal motor deficits Psych Psych Narrative: Cooperative. Sleeping well at night. Attitude: No agitated Activity / Motor Behavior: Negative for restless Weight / BMI Weight Weight: 256 lb 6.362 oz Body Mass Index (BMI) 37.8 ABG / Lab / Microbiology Data 09/14/23 05:12 09/14/23 05:12 Microbiology: Microbiology 09/06/23 00:40 Urine Catheter - Sebastian Urine Culture - Final ESBL Escherichia coli D/C Instructions Discharge Diet: No restrictions Weight Bearing Status: Full weight bearing Keep extremity elevated above heart level: Legs Call your doctor if your incision/area has: Continuous Slow Oozing, Sudden Increased Bleeding, Increased Pain/ Swelling, Increased Redness, Foul Smelling Discharge and Swelling at the incision site Call your doctor if you observe: Fever of 101 or Higher, Inability to urinate, Shortness of breath, Dizziness, Fainting spells, Chest pain, Calf discomfort, Uncontrolled pain and - (Any sudden change in behavior or level of alertness, coughing with eating/swallowing.) Suture Line Care: Avoid Pulling/Pushing and Avoid Pinching/Bending Cleanse incision/area with: Soap & Water Additional Dressing/Incision Instructions: No dressing needed but, if your clothes are irritating the incision you can cover with a dry dressing. Pending Tests Upon Discharge: none Please Follow Up With: Dr. Rachel Forbes When: You will also need to follow up Danielle Rm NP on 09/24/23 at 4:25 PM, Dr. Rg De La Fuente on 09/25/23 at 10:30 AM (for the bleeding in the brain). Meaningful Use Info Meaningful Use Meaningful Use Diagnoses (Choose all that apply): None applicable Ischemic Stroke Statin Dosing Therapy Reference: STATIN DOSE THERAPY REFERENCE: * Patients > 75 years receive moderate or high dose statin therapy. * Patients 75 years or YOUNGER should receive HIGH intensity statin dose unless contraindicated. You will be required to document reason for non-treatment if statin daily dose does not meet guidelines. HIGH DOSE STATIN THERAPY DAILY Atorvastatin > than or = to 40 mg Rosuvastatin > than or = to 20 mg Amlodipine + Atorvastatin > than or = to 2.5/40 mg Ezetimibe + Simvastatin 10/80 mg Simvastatin 80mg Discharge Plan Admission Admit Date/Time: 09/04/23 20:30 Primary Reason for Your Visit: Debility due to fall with SDH and vertebral fx/spinal fusion of T9-L2 Attending Provider: Gladys De Leon Primary Care Provider: Violet Dunham NP Instructions Patient Instructions: Caring for Your Incision, Dysphagia Aspiration, ED Urinary Tract Infections in Men Additional Instructions / Restrictions: 1. I think it would be a good idea to continue Seroquel at the current dose until Joshua is done with doctors appts. Seroquel helps keep his agitation under control and he has been doing very well on the current dose. If in a couple weeks he is doing well at home with no issues would discontinue the dose in the AM but, continue the bedtime dose. People with dementia often have trouble sleeping and get up and wander at night. You may be able to get better sleep if Joshua is getting better sleep. If he continues to do well after eliminating the morning dose then you can cut the bedtime dose in half. If he continues to do well you can try discontinuing in 10-14 days. 2. I have given you some literature to read on dysphagia and aspiration. Patients with dementia often eventually develop dysphagia (trouble swallowing). This can lead to the fluids and food going down the wrong pipe and this can lead to pneumonia. If this happens Joshua will need to see speech therapy. Sometimes when the swallowing gets bad you have to start thickening liquids to prevent aspiration of food into the lungs. 3. I have also given you some literature on urinary tract infections (UTI). Joshua is now on 2 medications to tx an enlarged prostate to help the urine drain better. He was retaining a large amount of urine in the bladder after urinating early in the admission to rehab. We added a drug to help shrink the prostate and it is called Proscar. He is still retaining some urine after he pees but, the amount is less than 300 cc's and so I see no need to put in a catheter. When you retain urine the risk for a UTI increases. The symptoms of a UTI are listed in the handout about UTI's in men. ANY INFECTION in a dementia patient can lead to increased confusion and behavioral problems. If he has a sudden change in his mental status have him checked out at the doctors because he could have an infection. Change in mental status in elderly people is often the only sign of a UTI. 4. I hope everything goes well at home. If you have any questions after you get home please do not hesitate to call me. OFFICE: [phone] CELL: [phone] Discharge Orders/Prescriptions Prescriptions: New acetaminophen 325 mg Tablet 650 mg PO Q6H Qty: 1 0RF quetiapine 25 mg Tablet See Rx Instructions .ROUTE .COMPLEX Qty: 75 0RF Rx Instructions: 1 tab in the morning and 1 and 1/2 tabs at HS finasteride 5 mg Tablet 5 mg PO DAILY Qty: 30 0RF tramadol 50 mg Tablet 25 mg PO TID PRN (Reason: pain 4-10) Qty: 21 0RF Continued amlodipine 5 mg tablet 5 mg PO DAILY ammonium lactate 12 % lotion 1 applic topical PRN PRN (Reason: dry skin) atorvastatin 10 mg tablet 10 mg PO DAILY latanoprost 0.005 % drops 1 drp ophthalmic (eye) QHS levothyroxine 150 mcg tablet 150 mcg PO DAILY losartan 100 mg tablet 100 mg PO DAILY omeprazole 10 mg capsule,delayed release(DR/EC) 10 mg PO DAILY tamsulosin 0.4 mg capsule 0.4 mg PO DAILY Discontinued hydrochlorothiazide 25 mg tablet 25 mg PO DAILY melatonin 3 mg capsule 3 mg PO QHS Rx Instructions: take 2 tablets by mouth at bedtime. acetaminophen [Tylenol] 325 mg tablet 325 mg PO Q6H Rx Instructions: 2 tablets four times daily. oxycodone 5 mg tablet 5 mg PO Q8H PRN (Reason: pain (scale score 7-10)) polyethylene glycol 3350 [Miralax] 17 gram/dose powder 17 g PO BID Rx Instructions: dissolve dose in 4-8 ounces of liquid and take as directed. sennosides [senna] 8.6 mg tablet 8.6 mg PO BID Rx Instructions: take 2 tablets by mouth twice a day. Referrals / Follow Up: Rg De La Fuente [Other] - 09/25/23 10:30 am (Will see VIRIDIANA Arcos first for the brain hematoma. ) [facility] Adrienne Henry [Other] - 09/20/23 2:00 pm (Xray and CT) Danielle Rm NP, [facility] [Non-Staff] - 09/24/23 4:25 pm (bring insurance card & photo ID) Disposition Disposition (needs filled in before D/C Order can be placed): Home Health Service Charges/Coding Visit Charges Inpatient E&M: 52386 Disch Hosp >30min
--- NOTE | 2023-09-20 13:43 | NURSING ---
discharged home with family. discharge instructions, medications and appointments reviewed with pt and family. denies questions or concerns
== END 2023-09-20 13:10 | disposition home health service (06) | DRG 560 ==
PROVIDERS: Admitting Provider Internal Medicine; PCP Nurse Practitioner; Visit Provider Internal Medicine
DX: S22.089D Unspecified fracture of T11-T12 vertebra, subsequent encounter for fracture with routine healing (principal); Z16.12 Extended spectrum beta lactamase (ESBL) resistance; G91.2 (Idiopathic) normal pressure hydrocephalus; T83.511A Infection and inflammatory reaction due to indwelling urethral catheter, initial encounter; N39.0 Urinary tract infection, site not specified; E11.9 Type 2 diabetes mellitus without complications; D53.9 Nutritional anemia, unspecified; B96.20 Unspecified Escherichia coli [E. coli] as the cause of diseases classified elsewhere; E66.01 Morbid (severe) obesity due to excess calories; F02.C0 Dementia in other diseases classified elsewhere, severe, without behavioral disturbance, psychotic disturbance, mood disturbance, and anxiety; E03.9 Hypothyroidism, unspecified; I10 Essential (primary) hypertension; F17.290 Nicotine dependence, other tobacco product, uncomplicated; E78.2 Mixed hyperlipidemia; W10.9XXD Fall (on) (from) unspecified stairs and steps, subsequent encounter; K21.9 Gastro-esophageal reflux disease without esophagitis; S06.5X0D Traumatic subdural hemorrhage without loss of consciousness, subsequent encounter; Z98.1 Arthrodesis status; R33.8 Other retention of urine; M85.80 Other specified disorders of bone density and structure, unspecified site; N40.1 Benign prostatic hyperplasia with lower urinary tract symptoms; Z68.38 Body mass index [BMI] 38.0-38.9, adult; Z79.899 Other long term (current) drug therapy; Z79.890 Hormone replacement therapy; Y73.1 Therapeutic (nonsurgical) and rehabilitative gastroenterology and urology devices associated with adverse incidents; Z98.2 Presence of cerebrospinal fluid drainage device
CPT/HCPCS: 36415; 72072; 80048; 80053; 81001; 83735; 84100; 84443; 85025; 87077; 87086; 87088; 87186; 92507; 92523; 92611; 93005; 97110; 97116; 97129; 97130; 97162; 97166; 97530; 97535; 97802